=== PATIENT | female | born 1960 | race Caucasian/White ===

== ENCOUNTER 2019-06-08 16:40 | Outpatient (CLI) | payer MEDICARE, SELFPAY | END 2019-06-08 16:41 | disposition home or self-care (01) | LOC: CHSLAB 16:47 | PROVIDERS: PCP Internal Medicine; Visit Provider Specialist | DX: C44.519 Basal cell carcinoma of skin of other part of trunk (principal) | CPT/HCPCS: 88305 ==

== ENCOUNTER 2020-01-24 08:47 | Outpatient (CLI) | payer MEDICARE, SELFPAY ==
--- NOTE | ~2020-01-24 | MM_ITS ---
EXAMINATION: MM screening caleb BI w raúl HISTORY: Screening TECHNIQUE: Craniocaudal and mediolateral oblique 3-D tomosynthesis images were obtained and synthetic 2-D images were generated. CAD analysis was submitted and interpreted. COMPARISON: Comparison to multiple prior studies sequentially, with oldest reviewed study dated 11/17. BREAST PARENCHYMAL COMPOSITION: There are scattered areas of fibroglandular density. FINDINGS: There is no evidence of suspicious mass, calcification, or architectural distortion to sugg est malignancy in either breast. There has been no suspicious interval change. IMPRESSION: 1. No mammographic evidence of malignancy. 2. Recommend routine screening mammography in one year. BI-RADS Category 1: Negative Reviewed, dictated and finalized at location A.
== END 2020-01-24 08:48 | disposition home or self-care (01) ==
PROVIDERS: PCP Internal Medicine; Visit Provider Internal Medicine
DX: Z12.31 Encounter for screening mammogram for malignant neoplasm of breast (principal)
CPT/HCPCS: 77063; 77067

== ENCOUNTER 2020-02-11 07:07 | Outpatient (CLI) | payer MEDICARE, SELFPAY ==
[2020-02-11 07:19] LABS: Add Urine Microscopic? YES; Appearance Urine Clear (Clear); Bilirubin Urine Negative (Negative); Blood Urine Negative (Negative); Color Urine Yellow (Yellow); Glucose Urine UA Negative (Negative); Ketones Urine Negative (Negative); Leukocyte Esterase Ur 2+ (Negative); Nitrate Urine Negative (Negative); Protein Urine Negative (Negative); Specific Grav Ur 1.025 (1.010-1.020); Urobilinogen Urine 0.2 mg/dL (0.2-1.0)
[2020-02-11 07:20] LABS: Basophils Absolute Auto 0.08 K/mm3 (0.00-0.10); Basophils Percent Auto 1.4 % (0.0-1.0); Eosinophils Absolute Auto 0.18 K/mm3 (0.02-0.50); Eosinophils Percent Auto 3.1 % (1.0-6.0); Hematocrit 41.1 % (35.0-49.0); Hemoglobin 13.5 g/dL (12.0-15.0); Immature Granulocyte Absolute 0.02 K/mm3 (0.00-0.00); Immature Granulocyte Percent A 0.3 % (0.0-0.0); Lymphocytes Absolute Auto 2.42 K/mm3 (1.10-4.50); Lymphocytes Percent Auto 41.3 % (18.0-42.0); Mean Corpuscular HGB Conc 32.8 g/dL (32.0-36.0); Mean Corpuscular Hemoglobin 32.8 pg (27.0-31.0); Mean Platelet Volume 9.8 fl (9.2-11.8); Monocytes Absolute Auto 0.52 K/mm3 (0.10-0.90); Monocytes Percent Auto 8.9 % (2.0-11.0); Neutrophils Absolute Auto 2.6 K/mm3 (1.7-7.2); Platelet Count Result 236 K/mm3 (150-420); Red Blood Count 4.11 M/mm3 (4.20-5.40); Red Cell Distribution Width 11.9 % (11.6-14.4); White Blood Count 5.9 K/mm3 (4.8-10.8)
[2020-02-11 07:33] LABS: Bacteria Urine 1+ /hpf; RBC Urine 0-2 /hpf (0-2); Squamous Epithelial Cell Urine Few /hpf (Few)
[2020-02-11 08:20] LABS: Alanine Aminotransferase 24 U/L (14-59); Alkaline Phosphatase 126 U/L (46-116); Anion Gap 7 mmol/L (8-16); Aspartate Amino Transferase 15 U/L (15-37); Bilirubin,Total 0.3 mg/dL (0.00-1.00); Blood Urea Nitrogen 15 mg/dL (7-18); Carbon Dioxide 29 mmol/L (21-32); Chloride 104 mmol/L (98-108); Cholesterol 203 mg/dL (0-200); Creatine Kinase 82 U/L (26-192); Estimated Glomerular Filt Rate > 60; Glucose 92 mg/dL (70-99); HDL Direct 61 mg/dL (40-60); LDL Cholesterol Calculated 122 mg/dL (<130); Osmolality Calculated 290 mOsm/kg (285-295); Potassium 4.4 mmol/L (3.5-5.1); Sodium 140 mmol/L (136-145); Total Protein 7.5 g/dL (6.4-8.2); Triglycerides 98 mg/dL (0-150)
[2020-02-15 09:59] LABS: Vitamin D 25 Hydroxy 51 ng/mL (30-100)
== END 2020-02-11 07:08 | disposition home or self-care (01) ==
LOC: CHSLAB 07:09
PROVIDERS: PCP Internal Medicine; Visit Provider Internal Medicine
DX: E78.2 Mixed hyperlipidemia (principal); M81.0 Age-related osteoporosis without current pathological fracture; M54.2 Cervicalgia
CPT/HCPCS: 36415; 80053; 80061; 81001; 82306; 82550; 85025

== ENCOUNTER 2020-05-11 12:39 | Outpatient (CLI) | payer MEDICARE, SELFPAY ==
--- NOTE | ~2020-05-11 | XR_ITS ---
EXAMINATION: XR wrist RT 2V DATE: 05/11/2020 13:15 INDICATION: Right wrist pain and swelling. TECHNIQUE: 4 views of right wrist were obtained. COMPARISON: None. FINDINGS: Bone alignment is normal. No fracture. Joint spaces are well maintained. IMPRESSION: 1. Normal right wrist. Reviewed, dictated and finalized at location B. 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 Normal right wrist.
--- NOTE | ~2020-05-11 | XR_ITS ---
EXAMINATION: XR wrist LT 2V DATE: 05/11/2020 13:16 INDICATION: Left wrist pain and swelling. TECHNIQUE: 4 views of left wrist were obtained. COMPARISON: None. FINDINGS: Bone alignment is normal. No fracture. Joint spaces are well maintained. IMPRESSION: 1. Normal left wrist. Reviewed, dictated and finalized at location B. 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 Normal left wrist.
== END 2020-05-11 12:40 | disposition home or self-care (01) ==
LOC: CHSIMG 12:44
PROVIDERS: PCP Internal Medicine; Visit Provider Plastic Surgery
DX: M19.031 Primary osteoarthritis, right wrist (principal); M19.032 Primary osteoarthritis, left wrist
CPT/HCPCS: 73100

== ENCOUNTER 2020-09-15 08:59 | Outpatient (CLI) | payer MEDICARE, SELFPAY ==
[2020-09-15 09:12] LABS: Basophils Absolute Auto 0.04 K/mm3 (0.00-0.10); Basophils Percent Auto 0.5 % (0.0-1.0); Eosinophils Absolute Auto 0.12 K/mm3 (0.02-0.50); Eosinophils Percent Auto 1.4 % (1.0-6.0); Hematocrit 38.3 % (35.0-49.0); Hemoglobin 12.4 g/dL (12.0-15.0); Immature Granulocyte Absolute 0.03 K/mm3 (0.00-0.00); Immature Granulocyte Percent A 0.4 % (0.0-0.0); Lymphocytes Absolute Auto 1.78 K/mm3 (1.10-4.50); Lymphocytes Percent Auto 21.3 % (18.0-42.0); Mean Corpuscular HGB Conc 32.4 g/dL (32.0-36.0); Mean Corpuscular Hemoglobin 31.7 pg (27.0-31.0); Mean Platelet Volume 8.9 fl (9.2-11.8); Monocytes Absolute Auto 0.74 K/mm3 (0.10-0.90); Monocytes Percent Auto 8.9 % (2.0-11.0); Neutrophils Absolute Auto 5.6 K/mm3 (1.7-7.2); Neutrophils Percent Auto 67.5 % (50.0-70.0); Platelet Count Result 251 K/mm3 (150-420); Red Blood Count 3.91 M/mm3 (4.20-5.40); Red Cell Distribution Width 13.8 % (11.6-14.4); White Blood Count 8.3 K/mm3 (4.8-10.8)
[2020-09-15 10:16] LABS: Erythrocyte Sedimentation Rate 35 mm/hr (0-20)
[2020-09-15 10:17] LABS: Alanine Aminotransferase 23 U/L (14-59); Albumin Level 3.6 g/dL (3.4-5.0); Alkaline Phosphatase 142 U/L (46-116); Anion Gap 7 mmol/L (8-16); Aspartate Amino Transferase 14 U/L (15-37); Bilirubin,Total 0.3 mg/dL (0.00-1.00); Blood Urea Nitrogen 13 mg/dL (7-18); CRP 1.6 mg/dL (0.0-0.9); Carbon Dioxide 30 mmol/L (21-32); Chloride 102 mmol/L (98-108); Estimated Glomerular Filt Rate > 60; Glucose 85 mg/dL (70-99); Osmolality Calculated 287 mOsm/kg (285-295); Potassium 4.5 mmol/L (3.5-5.1); Sodium 139 mmol/L (136-145); Total Protein 7.6 g/dL (6.4-8.2)
== END 2020-09-15 09:00 | disposition home or self-care (01) ==
LOC: CHSLAB 09:01
PROVIDERS: PCP Internal Medicine; Visit Provider Internal Medicine
DX: M05.741 Rheumatoid arthritis with rheumatoid factor of right hand without organ or systems involvement (principal)
CPT/HCPCS: 36415; 80053; 85025; 85652; 86140

== ENCOUNTER 2021-01-26 12:28 | Outpatient (CLI) | payer MEDICARE, SELFPAY ==
--- NOTE | ~2021-01-26 | MM_ITS ---
EXAMINATION: MM screening caleb BI w raúl HISTORY: Screening mammogram TECHNIQUE: Craniocaudal and mediolateral oblique 3-D tomosynthesis images were obtained and synthetic 2-D images were generated. CAD analysis was submitted and interpreted. COMPARISON: 01/24/2020, 09/06/2018, 01/02/2015 bilateral digital screening mammogram examinations BREAST PARENCHYMAL COMPOSITION: There are scattered areas of fibroglandular density. FINDINGS: There is no evidence of suspicious mass, calcification, or architectural distortion to sugg est malignancy in either breast. There has been no suspicious interval change. IMPRESSION: 1. No mammographic evidence of malignancy. 2. Recommend routine screening mammography in one year. BI-RADS Category 1: Negative Reviewed, dictated and finalized at location A.
== END 2021-01-26 12:29 | disposition home or self-care (01) ==
LOC: CHSIMG 12:29
PROVIDERS: PCP Internal Medicine; Visit Provider Internal Medicine
DX: Z12.31 Encounter for screening mammogram for malignant neoplasm of breast (principal)
CPT/HCPCS: 77063; 77067

== ENCOUNTER 2021-01-30 15:35 | Outpatient (CLI) | payer MEDICARE, SELFPAY ==
[2021-01-30 16:36] LABS: SARS-CoV-2 RNA PCR Negative (Negative)
== END 2021-01-30 15:36 | disposition home or self-care (01) ==
LOC: CHSLAB 15:36
PROVIDERS: PCP Internal Medicine; Visit Provider Internal Medicine
DX: J06.9 Acute upper respiratory infection, unspecified (principal); Z20.822 Contact with and (suspected) exposure to COVID-19
CPT/HCPCS: C9803; U0003; U0005

== ENCOUNTER 2021-01-31 16:23 | Outpatient (CLI) | payer MEDICARE, SELFPAY ==
--- NOTE | ~2021-01-31 | XR_ITS ---
EXAMINATION: XR chest 2V DATE: 01/31/2021 16:55 INDICATION: 4 days of shortness of breath. COPD. TECHNIQUE: frontal and lateral views of the chest were obtained. COMPARISON: Chest radiograph dated 12/29/2017 FINDINGS: The lungs remain clear with no focal airspace opacities, pulmonary edema, pleural effusion or pneumot horax. The cardiomediastinal silhouette is normal. Mild thoracic spondylosis. Moderate arthrosis at t he right acromioclavicular joint. IMPRESSION: 1. No acute cardiopulmonary disease. Reviewed, dictated and finalized at location A.
--- NOTE | ~2021-01-31 | CT_ITS ---
EXAMINATION: CTA chest PE protocol DATE: 01/31/2021 18:00 INDICATION: Shortness of breath. TECHNIQUE: Computed tomography angiography (CTA) of the chest was performed with 100 mL Omnipaque-350 intravenous contrast timed to evaluate the pulmonary arteries. Coronal maximum intensity projection 3D-reconstructions were created by the technologist. Automated exposure control and iterative reconst ruction technique were employed. The dose-length product was 291.10 mGy-cm. COMPARISON: Chest CT 08/31/2018 FINDINGS: There is mild scarring at the lung apices. There is moderate emphysema. There is mild depen dent atelectasis bilaterally. No pleural effusion. The heart size is normal. No pericardial effusion. There is no pulmonary embolus. There is a small sliding hiatal hernia. There is mild thoracic spondy losis. IMPRESSION: 1. No pulmonary embolus. 2. Moderate emphysema. Reviewed, dictated and finalized at location A.
[2021-01-31 16:45] LABS: Basophils Absolute Auto 0.05 K/mm3 (0.00-0.10); Basophils Percent Auto 0.6 % (0.0-1.0); Eosinophils Absolute Auto 0.14 K/mm3 (0.02-0.50); Eosinophils Percent Auto 1.8 % (1.0-6.0); Hematocrit 36.3 % (35.0-49.0); Hemoglobin 11.9 g/dL (12.0-15.0); Immature Granulocyte Absolute 0.05 K/mm3 (0.00-0.00); Immature Granulocyte Percent A 0.6 % (0.0-0.0); Lymphocytes Absolute Auto 1.23 K/mm3 (1.10-4.50); Lymphocytes Percent Auto 15.4 % (18.0-42.0); Mean Corpuscular HGB Conc 32.8 g/dL (32.0-36.0); Mean Corpuscular Hemoglobin 33.5 pg (27.0-31.0); Mean Corpuscular Volume 102.3 fL (78.0-102.0); Mean Platelet Volume 9.1 fl (9.2-11.8); Monocytes Absolute Auto 0.57 K/mm3 (0.10-0.90); Monocytes Percent Auto 7.1 % (2.0-11.0); Neutrophils Percent Auto 74.5 % (50.0-70.0); Platelet Count Result 269 K/mm3 (150-420); Red Blood Count 3.55 M/mm3 (4.20-5.40); Red Cell Distribution Width 14.7 % (11.6-14.4)
--- NOTE | 2021-01-31 17:00 | ECG_ITS ---
Measurements Intervals [place] Rate: 69 P: 67 AR: 138 QRS: 75 QRSD: 96 T: 73 QT: 371 QTc: 399 Interpretive Statements SINUS RHYTHM ST-T WAVE ABNORMALITY IN ANTERIOR LEADS- CONSIDER ISCHEMIA ABNORMAL ECG Electronically Signed On 02-01-2021 8:36:32 CDT by Jj Pepper D.O.
[2021-01-31 17:01] LABS: D Dimer 0.66 mg/L (0.19-0.50)
[2021-01-31 17:06] LABS: Alanine Aminotransferase 30 U/L (14-59); Albumin Level 3.3 g/dL (3.4-5.0); Alkaline Phosphatase 130 U/L (46-116); Anion Gap 8 mmol/L (8-16); Aspartate Amino Transferase 18 U/L (15-37); Bilirubin,Total 0.2 mg/dL (0.00-1.00); Blood Urea Nitrogen 13 mg/dL (7-18); Calcium 9.4 mg/dL (8.5-10.1); Carbon Dioxide 30 mmol/L (21-32); Chloride 103 mmol/L (98-108); Estimated Glomerular Filt Rate > 60; Glucose 105 mg/dL (70-99); NT Pro B Type Natriuretic Pept 71 pg/mL (0-125); Osmolality Calculated 292 mOsm/kg (285-295); Sodium 141 mmol/L (136-145); Total Protein 7.7 g/dL (6.4-8.2)
[2021-02-01 09:48] LABS: Vitamin B12 1036 pg/mL (193-986)
[2021-02-06 11:47] LABS: Red Blood Cell Folate >1000 ng/mL RBC (>280)
== END 2021-01-31 16:24 | disposition home or self-care (01) ==
PROVIDERS: PCP Internal Medicine; Visit Provider Internal Medicine
DX: R06.02 Shortness of breath (principal); R79.1 Abnormal coagulation profile; R06.00 Dyspnea, unspecified; J44.9 Chronic obstructive pulmonary disease, unspecified; D64.9 Anemia, unspecified
CPT/HCPCS: 36415; 71046; 71275; 80053; 82607; 82747; 83880; 85025; 85380; 93005; Q9967

== ENCOUNTER 2021-02-07 12:19 | Outpatient (CLI) | payer MEDICARE, SELFPAY | END 2021-02-07 12:20 | disposition home or self-care (01) | LOC: CHSCARD 12:20 | PROVIDERS: PCP Internal Medicine; Visit Provider Internal Medicine | DX: R06.00 Dyspnea, unspecified (principal); J44.9 Chronic obstructive pulmonary disease, unspecified | CPT/HCPCS: 94060; 94726; 94729 ==

== ENCOUNTER 2021-02-16 13:43 | Outpatient (CLI) | payer MEDICARE, SELFPAY ==
--- NOTE | ~2021-02-16 | US_ITS ---
EXAMINATION: US carotid duplex BI DATE: 02/16/2021 14:05 INDICATION: Carotid stenosis. TECHNIQUE: Grayscale, color Doppler, and pulsed Doppler images of the cervical carotid arteries were obtained. The degree of vessel stenosis is placed in one of the following categories: normal, <50%, 5 0-69%, >=70% but less than near-occlusion, near-occlusion, or total occlusion. Note that percent sten osis relative to normal distal artery lumen diameter is indirectly measured from velocity measurement s as described by Richard, et al. Radiology 2003; [id number]:340-346. COMPARISON: Chest CT 08/31/2018 FINDINGS: RIGHT: The right common carotid artery (CCA) peak systolic velocity (PSV) is 74 cm/s. The right internal car otid artery (ICA) PSV is 53 cm/s. The right ICA end-diastolic velocity (EDV) is 17 cm/s. The right IC A/CCA PSV ratio is 0.7. Grayscale and color Doppler images yield an estimate of <50% diameter reducti on from plaque in the ICA. There is no visible flow in the right vertebral artery. LEFT: The left CCA PSV is 84 cm/s. The left ICA PSV is 57 cm/s. The left ICA EDV is 25 cm/s. The left ICA/C CA PSV ratio is 0.7. Grayscale and color Doppler images yield an estimate of <50% diameter reduction from plaque in the ICA. There is antegrade flow in the left vertebral artery. IMPRESSION: 1. <50% stenosis in the right internal carotid artery. 2. <50% stenosis in the left internal carotid artery. 3. No visible flow in right vertebral artery, likely thrombosed. Reviewed, dictated and finalized at location A.
--- NOTE | ~2021-02-16 | DEXA_ITS ---
Bone Density Report Name: Hailey Nicole Age: 60 Sex: Female Ethnicity: White Date of : 1960 Indication: postmenopausal; screening for osteoporosis; asthma or emphysema; hysterectomy; rheumatoid arthritis; Referring Provider: Josefina Nguyen Study: Bone densitometry was performed. Exam Date: February 16, 2021 Accession number: [id number] Bone Density: Region BMD T-score Z-score Classification AP Spine(L1-L4) 0.812 -2.1 -0.8 Osteopenia Femoral Neck (Left) 0.658 -1.7 -0.5 Osteopenia Total Hip (Left) 0.770 -1.4 -0.5 Osteopenia Femoral Neck (Right) 0.675 -1.6 -0.3 Osteopenia Total Hip (Right) 0.767 -1.4 -0.5 Osteopenia Femoral Neck Mean 0.667 -1.6 -0.4 Osteopenia Total Hip Mean 0.769 -1.4 -0.5 Osteopenia World Health Organization criteria for BMD impression classify patients as: Normal (T-score at or above -1.0), Osteopenia (T-score between -1.0 and -2.5), or Osteoporosis (T-score at or below -2.5). 10-year Fracture Risk(1): Major Osteoporotic Fracture 11% Hip Fracture 1.2% Reported Risk Factors: [place] (), Neck BMD=0.658, BMI=26.1, rheumatoid arthritis (1) FRAX(R) Version 3.08. Fracture probability calculated for an untreated patient. Fracture probability may be lower if the patient has received treatment. Clinical Information Provided by Patient: Has rheumatoid arthritis Has used the following medications: Vitamin D, Calcium Has the following medical conditions: Asthma or Emphysema, Hysterectomy Patient maximum height was 64 Menopause Age: 31 No regular weight bearing exercise Drinks caffeinated beverages Onset of menses at age 15 Number of children 1 Impression: The patient has low bone mass, based on the Total Spine T-score. Discussion: BONE DENSITY IS LOW AT ONE OR MORE SKELETAL SITES. This patient's lowest T-score is low at one or more skeletal sites. It meets the World Health Organization's (WHO) criteria for ?low bone mass? (T-score between -1.0 and -2.5). The patient's 10-year risk of fracture as calculated by FRAX is less than the threshold where pharmacological therapy is recommended by the National Osteoporosis Foundation (NOF). However, all treatment decisions require clinical judgment and consideration of individual patient factors, including patient preferences, comorbidities, previous drug use, risk factors not captured in the FRAX model (e.g., frailty, falls, vitamin D deficiency, increased bone turnover, interval significant decline in bone density) and possible under or overestimation of fracture risk by FRAX. The patient should follow a healthful lifestyle (good nutrition with adequate calcium and vitamin D, and appropriate weight-bearing exercise). Follow-Up: Consider repeating this study in 2 to 3 years to reassess this pa
== END 2021-02-16 13:44 | disposition home or self-care (01) ==
LOC: CHSIMG 13:43
PROVIDERS: PCP Internal Medicine; Visit Provider Internal Medicine
DX: M81.0 Age-related osteoporosis without current pathological fracture (principal); I65.23 Occlusion and stenosis of bilateral carotid arteries
CPT/HCPCS: 77080; 93880

== ENCOUNTER 2021-10-09 15:18 | Outpatient (CLI) | payer MEDICARE, SELFPAY ==
--- NOTE | ~2021-10-09 | XR_ITS ---
EXAM: XR shoulder LT min 2V DATE: 10/09/2021 15:37 HISTORY: L SHOULDER PAIN X3 DAYS NKI . COMPARISON: None available. FINDINGS: Normal mineralization. No fracture or dislocation. No lytic or blastic lesion. Joint space s are maintained. No erosion or periosteal change. Soft tissues within normal limits. IMPRESSION: No acute osseous finding in the left shoulder. Reviewed, dictated and finalized at location K.
== END 2021-10-09 15:19 | disposition home or self-care (01) ==
LOC: CHSIMG 15:21
PROVIDERS: PCP Internal Medicine; Visit Provider Internal Medicine
DX: M25.512 Pain in left shoulder (principal)
CPT/HCPCS: 73030

== ENCOUNTER 2021-12-04 14:30 | Outpatient (CLI) | payer MEDICARE, SELFPAY ==
[2021-12-04 14:45] LABS: Basophils Absolute Auto 0.04 K/mm3 (0.00-0.10); Basophils Percent Auto 0.5 % (0.0-1.0); Eosinophils Percent Auto 1.2 % (1.0-6.0); Hemoglobin 11.8 g/dL (12.0-15.0); Immature Granulocyte Absolute 0.03 K/mm3 (0.00-0.00); Immature Granulocyte Percent A 0.4 % (0.0-0.0); Lymphocytes Absolute Auto 1.71 K/mm3 (1.10-4.50); Lymphocytes Percent Auto 21.1 % (18.0-42.0); Mean Corpuscular HGB Conc 32.8 g/dL (32.0-36.0); Mean Corpuscular Hemoglobin 34.5 pg (27.0-31.0); Mean Corpuscular Volume 105.3 fL (78.0-102.0); Mean Platelet Volume 10.3 fl (9.2-11.8); Monocytes Absolute Auto 0.61 K/mm3 (0.10-0.90); Monocytes Percent Auto 7.5 % (2.0-11.0); Neutrophils Absolute Auto 5.6 K/mm3 (1.7-7.2); Neutrophils Percent Auto 69.3 % (50.0-70.0); Platelet Count Result 254 K/mm3 (150-420); Red Blood Count 3.42 M/mm3 (4.20-5.40); Red Cell Distribution Width 15.5 % (11.6-14.4); White Blood Count 8.1 K/mm3 (4.8-10.8)
[2021-12-04 15:05] LABS: Alanine Aminotransferase 39 U/L (14-59); Albumin Level 4.2 g/dL (3.4-5.0); Alkaline Phosphatase 118 U/L (46-116); Anion Gap 8 mmol/L (8-16); Aspartate Amino Transferase 24 U/L (15-37); Bilirubin,Total 0.3 mg/dL (0.00-1.00); Blood Urea Nitrogen 15 mg/dL (7-18); Calcium 9.1 mg/dL (8.5-10.1); Carbon Dioxide 26 mmol/L (21-32); Chloride 103 mmol/L (98-108); Estimated Glomerular Filt Rate > 60; Glucose 92 mg/dL (70-99); Osmolality Calculated 284 mOsm/kg (285-295); Potassium 4.2 mmol/L (3.5-5.1); Sodium 137 mmol/L (136-145); Total Protein 7.5 g/dL (6.4-8.2)
[2021-12-04 15:56] LABS: Erythrocyte Sedimentation Rate 23 mm/hr (0-20)
== END 2021-12-04 14:31 | disposition home or self-care (01) ==
LOC: CHSLAB 14:36
PROVIDERS: PCP Internal Medicine
DX: Z79.899 Other long term (current) drug therapy (principal)
CPT/HCPCS: 36415; 80053; 85025; 85652

== ENCOUNTER 2022-02-01 07:46 | Outpatient (CLI) | payer MEDICARE, SELFPAY ==
--- NOTE | ~2022-02-01 | MM_ITS ---
EXAMINATION: MM screening [facility] BI w raúl HISTORY: Screening TECHNIQUE: Craniocaudal and mediolateral oblique 3-D tomosynthesis images were obtained and synthetic 2-D images were generated. CAD analysis was submitted and interpreted. COMPARISON: Comparison to multiple prior studies sequentially, with oldest reviewed study dated 06/2013. BREAST PARENCHYMAL COMPOSITION: There are scattered areas of fibroglandular density. FINDINGS: There is no evidence of suspicious mass, calcification, or architectural distortion to sugg est malignancy in either breast. There has been no suspicious interval change. IMPRESSION: 1. No mammographic evidence of malignancy. 2. Recommend routine screening mammography in one year. BI-RADS Category 1: Negative Reviewed, dictated and finalized at location A.
== END 2022-02-01 07:47 | disposition home or self-care (01) ==
LOC: CHSIMG 07:49
PROVIDERS: PCP Internal Medicine; Visit Provider Internal Medicine
DX: Z12.31 Encounter for screening mammogram for malignant neoplasm of breast (principal)
CPT/HCPCS: 77063; 77067

== ENCOUNTER 2022-02-04 08:52 | Outpatient (CLI) | payer MEDICARE, SELFPAY ==
[2022-02-04 09:09] LABS: Basophils Absolute Auto 0.07 K/mm3 (0.00-0.10); Basophils Percent Auto 0.8 % (0.0-1.0); Eosinophils Absolute Auto 0.19 K/mm3 (0.02-0.50); Eosinophils Percent Auto 2.2 % (1.0-6.0); Hematocrit 40.8 % (35.0-49.0); Hemoglobin 13.2 g/dL (12.0-15.0); Immature Granulocyte Absolute 0.03 K/mm3 (0.00-0.00); Immature Granulocyte Percent A 0.3 % (0.0-0.0); Lymphocytes Absolute Auto 2.64 K/mm3 (1.10-4.50); Lymphocytes Percent Auto 30.8 % (18.0-42.0); Mean Corpuscular HGB Conc 32.4 g/dL (32.0-36.0); Mean Corpuscular Hemoglobin 33.6 pg (27.0-31.0); Mean Corpuscular Volume 103.8 fL (78.0-102.0); Mean Platelet Volume 10.4 fl (9.2-11.8); Monocytes Absolute Auto 0.62 K/mm3 (0.10-0.90); Monocytes Percent Auto 7.2 % (2.0-11.0); Neutrophils Percent Auto 58.7 % (50.0-70.0); Platelet Count Result 233 K/mm3 (150-420); Red Blood Count 3.93 M/mm3 (4.20-5.40); Red Cell Distribution Width 13.7 % (11.6-14.4); White Blood Count 8.6 K/mm3 (4.8-10.8)
[2022-02-04 09:15] LABS: Appearance Urine Slightly Cloudy (Clear); Bilirubin Urine Negative (Negative); Glucose Urine UA Negative (Negative); Ketones Urine Negative (Negative); Leukocyte Esterase Ur 3+ LEU/UL (Negative); Nitrate Urine Positive (Negative); Protein Urine Negative (Negative); Urobilinogen Urine 0.2 mg/dL (0.2-1.0)
[2022-02-04 09:21] LABS: Add Urine Microscopic? YES; Bacteria Urine 2+ /hpf; Blood Urine Trace-Intact (Negative); Color Urine Light Yellow (Yellow); RBC Urine 0-2 /hpf (0-2); Squamous Epithelial Cell Urine Few /hpf (Few); WBC Urine 21-30 /hpf (0-3)
[2022-02-04 10:23] LABS: Alanine Aminotransferase 23 U/L (14-59); Albumin Level 4.1 g/dL (3.4-5.0); Alkaline Phosphatase 122 U/L (46-116); Anion Gap 7 mmol/L (8-16); Aspartate Amino Transferase 17 U/L (15-37); Bilirubin,Total 0.3 mg/dL (0.00-1.00); Blood Urea Nitrogen 15 mg/dL (7-18); Carbon Dioxide 30 mmol/L (21-32); Chloride 107 mmol/L (98-108); Cholesterol 180 mg/dL (0-200); Creatine Kinase 83 U/L (26-192); Estimated Glomerular Filt Rate > 60; Glucose 86 mg/dL (70-99); HDL Direct 56 mg/dL (40-60); LDL Cholesterol Calculated 110 mg/dL (<130); Osmolality Calculated 297 mOsm/kg (285-295); Sodium 144 mmol/L (136-145); Total Protein 7.3 g/dL (6.4-8.2); Triglycerides 69 mg/dL (0-150); Vitamin B12 919 pg/mL (193-986)
== END 2022-02-04 08:53 | disposition home or self-care (01) ==
LOC: CHSLAB 08:55
PROVIDERS: PCP Internal Medicine; Visit Provider Internal Medicine
DX: E78.2 Mixed hyperlipidemia (principal); N39.0 Urinary tract infection, site not specified; E53.8 Deficiency of other specified B group vitamins
CPT/HCPCS: 36415; 80053; 80061; 81001; 82550; 82607; 85025; 87077; 87086; 87088; 87186

== ENCOUNTER 2022-02-15 09:43 | Outpatient (CLI) | payer MEDICARE, SELFPAY ==
--- NOTE | ~2022-02-15 | CT_ITS ---
EXAMINATION: CT lung screening DATE: 02/15/2022 10:13 INDICATION: Personal history of tobacco dependence. Shortness of breath. Cough. TECHNIQUE: Computed tomography (CT) of the chest was performed without intravenous contrast. The dose -length product was 70.14 mGy-cm. Automated exposure control and iterative reconstruction technique w ere employed. COMPARISON: CT dated 01/31/2021 FINDINGS: No thoracic lymphadenopathy. Heart size is normal. There is atherosclerosis of the aorta. N o significant pleural or pericardial effusion. The upper abdomen is unremarkable. There is emphysema. There are reticulonodular densities in the right middle lobe, most likely infectious/inflammatory. L argest groundglass nodules in the right upper lobe measuring 3 mm. No acute osseous abnormality. IMPRESSION: 1. Lung-RADS category 2: Benign appearance or behavior. Continue annual screening with noncontrast lo w-dose chest CT in 12 months. Reviewed, dictated and finalized at location B. IMPRESSION: 1. Lung-RADS category 2: Benign appearance or behavior. Continue annual screeni ng with noncontrast low-dose chest CT in 12 months.
== END 2022-02-15 09:44 | disposition home or self-care (01) ==
LOC: CHSIMG 09:44
PROVIDERS: PCP Internal Medicine; Visit Provider Internal Medicine
DX: Z12.2 Encounter for screening for malignant neoplasm of respiratory organs (principal); Z87.891 Personal history of nicotine dependence
CPT/HCPCS: 71271

== ENCOUNTER 2022-07-23 08:05 | Outpatient (CLI) | payer MEDICARE, SELFPAY ==
[2022-07-23 08:48] LABS: Appearance Urine Clear (Clear); Basophils Absolute Auto 0.04 K/mm3 (0.00-0.10); Basophils Percent Auto 0.5 % (0.0-1.0); Bilirubin Urine Negative (Negative); Blood Urine Negative (Negative); Color Urine Light Yellow (Yellow); Eosinophils Absolute Auto 0.09 K/mm3 (0.02-0.50); Glucose Urine UA Negative (Negative); Hematocrit 41.2 % (35.0-49.0); Hemoglobin 13.4 g/dL (12.0-15.0); Immature Granulocyte Absolute 0.03 K/mm3 (0.00-0.00); Immature Granulocyte Percent A 0.3 % (0.0-0.0); Ketones Urine Negative (Negative); Leukocyte Esterase Ur Negative (Negative); Lymphocytes Absolute Auto 2.03 K/mm3 (1.10-4.50); Lymphocytes Percent Auto 23.5 % (18.0-42.0); Mean Corpuscular HGB Conc 32.5 g/dL (32.0-36.0); Mean Corpuscular Hemoglobin 33.9 pg (27.0-31.0); Mean Corpuscular Volume 104.3 fL (78.0-102.0); Mean Platelet Volume 10.2 fl (9.2-11.8); Monocytes Percent Auto 8.1 % (2.0-11.0); Neutrophils Absolute Auto 5.7 K/mm3 (1.7-7.2); Neutrophils Percent Auto 66.6 % (50.0-70.0); Nitrate Urine Negative (Negative); Platelet Count Result 277 K/mm3 (150-420); Protein Urine Negative (Negative); Red Blood Count 3.95 M/mm3 (4.20-5.40); Red Cell Distribution Width 14.1 % (11.6-14.4); Urobilinogen Urine 0.2 mg/dL (0.2-1.0); White Blood Count 8.6 K/mm3 (4.8-10.8)
[2022-07-23 08:50] LABS: Add Urine Microscopic? NO
[2022-07-23 09:48] LABS: Erythrocyte Sedimentation Rate 16 mm/hr (0-20)
[2022-07-23 09:52] LABS: Alanine Aminotransferase 39 U/L (14-59); Albumin Level 3.6 g/dL (3.4-5.0); Alkaline Phosphatase 147 U/L (46-116); Anion Gap 5 mmol/L (8-16); Aspartate Amino Transferase 26 U/L (15-37); Bilirubin,Total 0.3 mg/dL (0.00-1.00); Blood Urea Nitrogen 8 mg/dL (7-18); Calcium 9.1 mg/dL (8.5-10.1); Carbon Dioxide 33 mmol/L (21-32); Chloride 107 mmol/L (98-108); Cholesterol 177 mg/dL (0-200); Creatine Kinase 74 U/L (26-192); Estimated Glomerular Filt Rate > 60; Glucose 88 mg/dL (70-99); HDL Direct 83 mg/dL (40-60); LDL Cholesterol Calculated 86 mg/dL (<130); Osmolality Calculated 297 mOsm/kg (285-295); Potassium 3.9 mmol/L (3.5-5.1); Sodium 145 mmol/L (136-145); Total Protein 7.1 g/dL (6.4-8.2); Triglycerides 39 mg/dL (0-150); Vitamin B12 960 pg/mL (193-986)
[2022-07-23 09:56] LABS: CRP < 0.5 mg/dL (0.0-0.9)
== END 2022-07-23 08:06 | disposition home or self-care (01) ==
LOC: CHSLAB 08:06
PROVIDERS: PCP Internal Medicine; Visit Provider Internal Medicine
DX: I10 Essential (primary) hypertension (principal); E78.2 Mixed hyperlipidemia; M05.9 Rheumatoid arthritis with rheumatoid factor, unspecified; E53.8 Deficiency of other specified B group vitamins
CPT/HCPCS: 36415; 80053; 80061; 81003; 82550; 82607; 85025; 85652; 86140

== ENCOUNTER 2022-09-13 09:28 | Outpatient (CLI) | payer MEDICARE, SELFPAY ==
[2022-09-13 09:47] LABS: Basophils Absolute Auto 0.09 K/mm3 (0.00-0.10); Basophils Percent Auto 1.6 % (0.0-1.0); Eosinophils Percent Auto 1.8 % (1.0-6.0); Hematocrit 41.8 % (35.0-49.0); Hemoglobin 13.5 g/dL (12.0-15.0); Immature Granulocyte Absolute 0.02 K/mm3 (0.00-0.00); Immature Granulocyte Percent A 0.4 % (0.0-0.0); Lymphocytes Absolute Auto 1.71 K/mm3 (1.10-4.50); Lymphocytes Percent Auto 30.1 % (18.0-42.0); Mean Corpuscular HGB Conc 32.3 g/dL (32.0-36.0); Mean Corpuscular Hemoglobin 34.4 pg (27.0-31.0); Mean Corpuscular Volume 106.4 fL (78.0-102.0); Mean Platelet Volume 10.2 fl (9.2-11.8); Monocytes Absolute Auto 0.63 K/mm3 (0.10-0.90); Monocytes Percent Auto 11.1 % (2.0-11.0); Neutrophils Absolute Auto 3.1 K/mm3 (1.7-7.2); Platelet Count Result 232 K/mm3 (150-420); Red Blood Count 3.93 M/mm3 (4.20-5.40); Red Cell Distribution Width 14.8 % (11.6-14.4); White Blood Count 5.7 K/mm3 (4.8-10.8)
[2022-09-13 10:18] LABS: Alanine Aminotransferase 39 U/L (14-59); Albumin Level 3.6 g/dL (3.4-5.0); Alkaline Phosphatase 118 U/L (46-116); Anion Gap 6 mmol/L (8-16); Aspartate Amino Transferase 26 U/L (15-37); Bilirubin,Total 0.4 mg/dL (0.00-1.00); Blood Urea Nitrogen 7 mg/dL (7-18); Calcium 9.2 mg/dL (8.5-10.1); Carbon Dioxide 31 mmol/L (21-32); Chloride 106 mmol/L (98-108); Estimated Glomerular Filt Rate > 60; Glucose 81 mg/dL (70-99); Osmolality Calculated 293 mOsm/kg (285-295); Sodium 143 mmol/L (136-145); Total Protein 7.1 g/dL (6.4-8.2)
[2022-09-13 10:19] LABS: CRP < 0.5 mg/dL (0.0-0.9)
[2022-09-13 10:49] LABS: Erythrocyte Sedimentation Rate 20 mm/hr (0-20)
== END 2022-09-13 09:29 | disposition home or self-care (01) ==
LOC: CHSLAB 09:33
PROVIDERS: PCP Internal Medicine; Visit Provider Internal Medicine Rheumatology
DX: M35.3 Polymyalgia rheumatica (principal); Z79.899 Other long term (current) drug therapy
CPT/HCPCS: 36415; 80053; 85025; 85652; 86140

== ENCOUNTER 2022-10-08 14:36 | Outpatient (CLI) | payer MEDICARE, SELFPAY ==
[2022-10-08 14:51] LABS: Basophils Absolute Auto 0.06 K/mm3 (0.00-0.10); Basophils Percent Auto 0.7 % (0.0-1.0); Eosinophils Absolute Auto 0.08 K/mm3 (0.02-0.50); Hematocrit 39.4 % (35.0-49.0); Hemoglobin 12.8 g/dL (12.0-15.0); Immature Granulocyte Absolute 0.03 K/mm3 (0.00-0.00); Immature Granulocyte Percent A 0.4 % (0.0-0.0); Lymphocytes Absolute Auto 1.33 K/mm3 (1.10-4.50); Lymphocytes Percent Auto 16.3 % (18.0-42.0); Mean Corpuscular HGB Conc 32.5 g/dL (32.0-36.0); Mean Corpuscular Hemoglobin 34.3 pg (27.0-31.0); Mean Corpuscular Volume 105.6 fL (78.0-102.0); Mean Platelet Volume 10.1 fl (9.2-11.8); Monocytes Absolute Auto 0.71 K/mm3 (0.10-0.90); Monocytes Percent Auto 8.7 % (2.0-11.0); Neutrophils Percent Auto 72.9 % (50.0-70.0); Platelet Count Result 213 K/mm3 (150-420); Red Blood Count 3.73 M/mm3 (4.20-5.40); White Blood Count 8.2 K/mm3 (4.8-10.8)
[2022-10-08 15:15] LABS: Alanine Aminotransferase 38 U/L (14-59); Albumin Level 3.6 g/dL (3.4-5.0); Alkaline Phosphatase 128 U/L (46-116); Anion Gap 7 mmol/L (8-16); Aspartate Amino Transferase 32 U/L (15-37); Bilirubin,Total 0.4 mg/dL (0.00-1.00); Blood Urea Nitrogen 10 mg/dL (7-18); Calcium 8.7 mg/dL (8.5-10.1); Carbon Dioxide 29 mmol/L (21-32); Chloride 103 mmol/L (98-108); Estimated Glomerular Filt Rate > 60; Glucose 109 mg/dL (70-99); Osmolality Calculated 288 mOsm/kg (285-295); Potassium 3.6 mmol/L (3.5-5.1); Sodium 139 mmol/L (136-145); Total Protein 6.9 g/dL (6.4-8.2)
[2022-10-08 15:16] LABS: CRP < 0.5 mg/dL (0.0-0.9)
[2022-10-08 15:53] LABS: Erythrocyte Sedimentation Rate 20 mm/hr (0-20)
== END 2022-10-08 14:37 | disposition home or self-care (01) ==
LOC: CHSLAB 14:39
PROVIDERS: PCP Internal Medicine; Visit Provider Internal Medicine Rheumatology
DX: Z79.899 Other long term (current) drug therapy (principal)
CPT/HCPCS: 36415; 80053; 85025; 85652; 86140

== ENCOUNTER 2022-11-01 10:42 | Outpatient (CLI) | payer MEDICARE, SELFPAY ==
[2022-11-05 14:09] LABS: NIL 0.02 IU/mL; Quantiferon TB Plus, 1T NEGATIVE (NEGATIVE)
[2022-11-07 07:04] LABS: Hepatitis B Core Ab Total Nonreactive (Nonreactive)
[2022-11-07 07:05] LABS: Hepatitis B Surface Antigen Nonreactive (Nonreactive); Hepatitis C Virus Antibody Nonreactive
== END 2022-11-01 10:43 | disposition home or self-care (01) ==
LOC: CHSLAB 10:46
PROVIDERS: PCP Internal Medicine; Visit Provider Internal Medicine Rheumatology
DX: M35.3 Polymyalgia rheumatica (principal)
CPT/HCPCS: 36415; 86480; 86704; 86803; 87340

== ENCOUNTER 2022-11-28 09:34 | Outpatient (CLI) | payer MEDICARE, SELFPAY ==
[2022-11-28 09:52] LABS: Basophils Absolute Auto 0.05 K/mm3 (0.00-0.10); Eosinophils Absolute Auto 0.12 K/mm3 (0.02-0.50); Eosinophils Percent Auto 2.4 % (1.0-6.0); Hematocrit 39.8 % (35.0-49.0); Hemoglobin 13.2 g/dL (12.0-15.0); Immature Granulocyte Absolute 0.01 K/mm3 (0.00-0.00); Immature Granulocyte Percent A 0.2 % (0.0-0.0); Lymphocytes Absolute Auto 1.42 K/mm3 (1.10-4.50); Lymphocytes Percent Auto 28.3 % (18.0-42.0); Mean Corpuscular HGB Conc 33.2 g/dL (32.0-36.0); Mean Corpuscular Hemoglobin 35.7 pg (27.0-31.0); Mean Corpuscular Volume 107.6 fL (78.0-102.0); Mean Platelet Volume 10.1 fl (9.2-11.8); Monocytes Absolute Auto 0.41 K/mm3 (0.10-0.90); Monocytes Percent Auto 8.2 % (2.0-11.0); Neutrophils Percent Auto 59.9 % (50.0-70.0); Platelet Count Result 207 K/mm3 (150-420); Red Cell Distribution Width 14.2 % (11.6-14.4)
[2022-11-28 10:47] LABS: Alanine Aminotransferase 25 U/L (14-59); Albumin Level 3.4 g/dL (3.4-5.0); Alkaline Phosphatase 135 U/L (46-116); Anion Gap 8 mmol/L (8-16); Aspartate Amino Transferase 18 U/L (15-37); Bilirubin,Total 0.4 mg/dL (0.00-1.00); Blood Urea Nitrogen 8 mg/dL (7-18); CRP 0.5 mg/dL (0.0-0.9); Calcium 8.8 mg/dL (8.5-10.1); Carbon Dioxide 30 mmol/L (21-32); Chloride 106 mmol/L (98-108); Estimated Glomerular Filt Rate > 60; Glucose 102 mg/dL (70-99); Osmolality Calculated 296 mOsm/kg (285-295); Sodium 144 mmol/L (136-145); Total Protein 6.8 g/dL (6.4-8.2)
[2022-11-28 10:54] LABS: Erythrocyte Sedimentation Rate 30 mm/hr (0-20)
== END 2022-11-28 09:35 | disposition home or self-care (01) ==
LOC: CHSLAB 09:36
PROVIDERS: PCP Internal Medicine; Visit Provider Internal Medicine Rheumatology
DX: Z79.899 Other long term (current) drug therapy (principal)
CPT/HCPCS: 36415; 80053; 85025; 85652; 86140

== ENCOUNTER 2022-12-31 12:32 | Outpatient (CLI) | payer MEDICARE, SELFPAY ==
--- NOTE | ~2022-12-31 | XR_ITS ---
AP view of the pelvis and AP and lateral views of the bilateral hips Clinical history: Pain Findings: No acute fracture or dislocation is seen. Osseous alignment is anatomic. Bilateral hip and SI joint spaces are preserved. Soft tissues are unremarkable. Impression: No significant abnormality is seen. Reviewed, dictated and finalized at location . Impression: No significant abnormality is seen.
== END 2022-12-31 12:33 | disposition home or self-care (01) ==
LOC: CHSIMG 12:35
PROVIDERS: PCP Internal Medicine; Visit Provider Internal Medicine Rheumatology
DX: M70.61 Trochanteric bursitis, right hip (principal); M70.62 Trochanteric bursitis, left hip
CPT/HCPCS: 73521

== ENCOUNTER 2023-01-29 08:44 | Outpatient (CLI) | payer MEDICARE, SELFPAY ==
[2023-01-29 09:03] LABS: Appearance Urine Clear (Clear); Bilirubin Urine Negative (Negative); Blood Urine 3+ (Negative); Glucose Urine UA Negative (Negative); Ketones Urine Negative (Negative); Leukocyte Esterase Ur 3+ (Negative); Nitrate Urine Negative (Negative); Protein Urine 1+ (Negative); Specific Grav Ur 1.015 (1.010-1.020); Urobilinogen Urine 0.2 mg/dL (0.2-1.0)
[2023-01-29 09:04] LABS: Basophils Absolute Auto 0.07 K/mm3 (0.00-0.10); Basophils Percent Auto 0.6 % (0.0-1.0); Eosinophils Absolute Auto 0.11 K/mm3 (0.02-0.50); Eosinophils Percent Auto 0.9 % (1.0-6.0); Hematocrit 39.9 % (35.0-49.0); Hemoglobin 13.3 g/dL (12.0-15.0); Immature Granulocyte Absolute 0.06 K/mm3 (0.00-0.00); Immature Granulocyte Percent A 0.5 % (0.0-0.0); Lymphocytes Absolute Auto 1.69 K/mm3 (1.10-4.50); Lymphocytes Percent Auto 13.6 % (18.0-42.0); Mean Corpuscular HGB Conc 33.3 g/dL (32.0-36.0); Mean Corpuscular Hemoglobin 35.2 pg (27.0-31.0); Mean Corpuscular Volume 105.6 fL (78.0-102.0); Mean Platelet Volume 10.4 fl (9.2-11.8); Monocytes Absolute Auto 0.79 K/mm3 (0.10-0.90); Monocytes Percent Auto 6.3 % (2.0-11.0); Neutrophils Absolute Auto 9.8 K/mm3 (1.7-7.2); Neutrophils Percent Auto 78.1 % (50.0-70.0); Platelet Count Result 215 K/mm3 (150-420); Red Blood Count 3.78 M/mm3 (4.20-5.40); Red Cell Distribution Width 13.2 % (11.6-14.4); White Blood Count 12.5 K/mm3 (4.8-10.8)
[2023-01-29 09:09] LABS: Add Urine Microscopic? YES; Color Urine Light Yellow (Yellow)
[2023-01-29 09:10] LABS: Bacteria Urine 1+ /hpf; Squamous Epithelial Cell Urine Rare /hpf (Few); WBC Urine 16-20 /hpf (0-3)
[2023-01-29 09:11] LABS: Hemoglobin A1C 5.6 % (<5.7)
[2023-01-29 10:04] LABS: Erythrocyte Sedimentation Rate 12 mm/hr (0-20)
[2023-01-29 10:05] LABS: Alanine Aminotransferase 37 U/L (14-59); Albumin Level 3.5 g/dL (3.4-5.0); Alkaline Phosphatase 115 U/L (46-116); Anion Gap 6 mmol/L (8-16); Aspartate Amino Transferase 22 U/L (15-37); Bilirubin,Total 0.5 mg/dL (0.00-1.00); Blood Urea Nitrogen 13 mg/dL (7-18); Calcium 9.1 mg/dL (8.5-10.1); Carbon Dioxide 31 mmol/L (21-32); Chloride 105 mmol/L (98-108); Cholesterol 198 mg/dL (0-200); Creatine Kinase 91 U/L (26-192); Estimated Glomerular Filt Rate > 60; Glucose 93 mg/dL (70-99); HDL Direct 71 mg/dL (40-60); LDL Cholesterol Calculated 114 mg/dL (<130); Osmolality Calculated 294 mOsm/kg (285-295); Potassium 3.9 mmol/L (3.5-5.1); Sodium 142 mmol/L (136-145); Total Protein 6.7 g/dL (6.4-8.2); Triglycerides 65 mg/dL (0-150); Vitamin B12 1106 pg/mL (193-986)
== END 2023-01-29 08:45 | disposition home or self-care (01) ==
LOC: CHSLAB 08:47
PROVIDERS: PCP Internal Medicine; Visit Provider Internal Medicine
DX: E78.2 Mixed hyperlipidemia (principal); E53.8 Deficiency of other specified B group vitamins; R73.01 Impaired fasting glucose
CPT/HCPCS: 36415; 80053; 80061; 81001; 82550; 82607; 83036; 85025; 85652

== ENCOUNTER 2023-02-03 11:59 | Outpatient (CLI) | payer MEDICARE, SELFPAY ==
--- NOTE | ~2023-02-03 | MM_ITS ---
EXAMINATION: MM screening caleb BI w raúl HISTORY: Screening TECHNIQUE: Craniocaudal and mediolateral oblique 3-D tomosynthesis images were obtained and synthetic 2-D images were generated. CAD analysis was submitted and interpreted. COMPARISON: Comparison to multiple prior studies sequentially, with oldest reviewed study dated 06/2013. BREAST PARENCHYMAL COMPOSITION: Breast composed of scattered areas of fibroglandular density FINDINGS: There is no evidence of suspicious mass, calcification, or architectural distortion to sugg est malignancy in either breast. There has been no suspicious interval change. IMPRESSION: 1. No mammographic evidence of malignancy. 2. Recommend routine screening mammography in one year. BI-RADS Category 1: Negative Reviewed, dictated and finalized at location A.
== END 2023-02-03 12:00 | disposition home or self-care (01) ==
LOC: CHSIMG 12:00
PROVIDERS: PCP Internal Medicine; Visit Provider Internal Medicine
DX: Z12.31 Encounter for screening mammogram for malignant neoplasm of breast (principal)
CPT/HCPCS: 77063; 77067

== ENCOUNTER 2023-02-17 13:46 | Outpatient (RCR) | payer MEDICARE, SELFPAY ==
--- NOTE | 2023-02-17 14:58 | PTOPEVAL1 ---
Assessment and note entered by Miguel Ruiz Evaluation Information Assessment Status Evaluation Diagnosis bilateral hip pain Onset 01/31/23 Subjective Information Pt. reports that she has had years of pain on the outside of the hips. She reports that the pain will radiate down both thighs. She reports that the left thigh hurts worse than the right. She reports she has to lay on a heating pad to ease her pain. She reports that pain is worsend after getting up from sitting, standing too long and walking long distance. She reports that she got a cortisone injection described around the trochanter on both right and left. She reports that she had 3-4 days of pain relief with the injection. She states that pain will wake her at night frequently and she is getting about 5 hours of off/on sleep nightly due to pain. She reports that she will get pain going across the low back. She reports she has hx of osteoporosis. She reports that left hip pain is greater than the right. She states that she can stand for about 15 mintes before having to sit. She reports she enjoys walking for exercise, but cannot currently due to pain. Reported Pain Level Pain Score 8: Self Report Assessment PT Clinical Summary Pt. is a 62 year old female who enters the clinic with bilateral hip pain. Pt. has presentation consistent with trochanteric bursitis as well as lumbar radiculopathy. She currently presents with pain around the trochanter and into the gluteal mm., proximal l.e. weakness, impaired gait, impaired trunk mobility and functional decline. Continued skilled PT is indicated in order to improve these areas to allow the pt. to be able to complete all IADL's without limitation. Plan of Care Interventions Electrical Stimulation,Hot Pack/Cold Pack,Manual Therapy,Mechanical Traction,Neuro Re-education, Patient/Caregiver Educati,Therapeutic Activities, Therapeutic Exercise PT Services Indicated Yes Treatment Frequency and 2x/week x 8 visits Duration These treatments will address the objective and functional deficits as defined above. The patient will be advanced safely and appropriately in order for the patient to progress towards his/her prior level of function. Additional exercises will be introduced and as well as a comprehensive home exercise program upon discharge, if needed, ?to ensure carryover of functional gains achieved in the clinic. This ronald
== END 2023-03-10 20:20 | disposition home or self-care (01) ==
LOC: CHSPT 13:46
PROVIDERS: PCP Internal Medicine; Visit Provider Internal Medicine Rheumatology
DX: M76.30 Iliotibial band syndrome, unspecified leg (principal); M70.60 Trochanteric bursitis, unspecified hip
CPT/HCPCS: 97014; 97110; 97140; 97161; G0283

== ENCOUNTER 2023-02-20 14:44 | Outpatient (CLI) | payer MEDICARE, SELFPAY ==
--- NOTE | ~2023-02-20 | CT_ITS ---
EXAMINATION: CT lung screening DATE: 02/20/2023 14:58 INDICATION: Personal history of nicotine dependence TECHNIQUE: Computed tomography (CT) of the chest was performed without intravenous contrast. The dose -length product was 71.29 mGy-cm. Automated exposure control and iterative reconstruction technique w ere employed. COMPARISON: CT dated 02/15/2022 FINDINGS: Mild mediastinal lymphadenopathy, likely reactive. Heart size normal. No significant pleura l or pericardial effusion. Mild atherosclerosis. The upper abdomen is unremarkable. There are small c entrilobular nodules in the right middle lobe measuring 3 mm. There are additional right upper lobe n odules measuring 3 mm or less. There is emphysema. No endobronchial lesions. No pneumothorax. Mild th oracic spondylosis. IMPRESSION: 1. Lung-RADS category 2: Benign appearance or behavior. Continue annual screening with noncontrast lo w-dose chest CT in 12 months. Reviewed, dictated and finalized at location A. IMPRESSION: 1. Lung-RADS category 2: Benign appearance or behavior. Continue annual screeni ng with noncontrast low-dose chest CT in 12 months.
== END 2023-02-20 14:45 | disposition home or self-care (01) ==
LOC: CHSIMG 14:44
PROVIDERS: PCP Internal Medicine; Visit Provider Internal Medicine
DX: Z12.2 Encounter for screening for malignant neoplasm of respiratory organs (principal); Z87.891 Personal history of nicotine dependence
CPT/HCPCS: 71271

== ENCOUNTER 2023-02-27 10:42 | Outpatient (CLI) | payer MEDICARE, SELFPAY ==
--- NOTE | ~2023-02-27 | DEXA_ITS ---
Bone Density Report Name: SHANICE CAMPBELL Age: 62 Sex: Female Ethnicity: White Date of : 1960 Indication: postmenopausal; screening for osteoporosis; height loss; asthma or emphysema; hysterectomy; rheumatoid arthritis; Referring Provider: NICKOLAS PORTER Study: Bone densitometry was performed. Exam Date: February 27, 2023 Accession number: [id number] Bone Density: Region BMD T-score Z-score Classification AP Spine(L1-L4) 0.743 -2.8 -1.3 Osteoporosis Femoral Neck (Left) 0.589 -2.3 -1.0 Osteopenia Total Hip (Left) 0.721 -1.8 -0.8 Osteopenia Femoral Neck (Right) 0.589 -2.3 -1.0 Osteopenia Total Hip (Right) 0.722 -1.8 -0.8 Osteopenia Femoral Neck Mean 0.589 -2.3 -1.0 Osteopenia Total Hip Mean 0.721 -1.8 -0.8 Osteopenia World Health Organization criteria for BMD impression classify patients as: Normal (T-score at or above -1.0), Osteopenia (T-score between -1.0 and -2.5), or Osteoporosis (T-score at or below -2.5). 10-year Fracture Risk: FRAX not reported because: Some T-score for Spine Total or Hip Total or Femoral Neck at or below -2.5 Clinical Information Provided by Patient: Has rheumatoid arthritis Has used the following medications: Vitamin D, Calcium Has the following medical conditions: Asthma or Emphysema, Hysterectomy Patient maximum height was 64 Menopause Age: 31 No regular weight bearing exercise Drinks caffeinated beverages Onset of menses at age 15 Number of children 1 Impression: The patient has osteoporosis, based on the Total Spine T-score. Discussion: INCREASED RISK OF FRACTURE. BONE DENSITY IS UNDESIRABLY LOW AT ONE OR MORE SKELETAL SITES, CONSISTENT WITH POSTMENOPAUSAL OSTEOPOROSIS. This patient's lowest T-score meets the World Health Organization's (WHO) criteria for osteoporosis at one or more sites (T-score -2.5 or below). In untreated patients, the risk of osteoporotic fracture increases approximately two-fold for each 1.0 SD decrease in T-score. Low bone density is not the only risk factor for fracture; also consider factors such as patient's age, frailty or poor health, risk of falling, risk of injury, previous osteoporotic fracture, family history of osteoporosis, cigarette smoking, low body weight, etc. Not everyone with low bone mineral density has osteoporosis; osteomalacia and other metabolic bone disorders should also be considered. Patients who have osteoporosis should be evaluated for specific diseases and conditions (secondary causes) that may cause or contribute to bone loss. The [place] [employer]ocrinologists (AACE) and National Osteoporosis Foundation (NOF) recommend pharmacologic intervention for all postmenopausal women whose T-score is in this range. The patient should follow a healthful lifestyle (good nutrition with adequate calcium and vitamin D, and appropriate weight-bearing exercise). Nayeli
== END 2023-02-27 10:43 | disposition home or self-care (01) ==
LOC: CHSIMG 10:43
PROVIDERS: PCP Internal Medicine; Visit Provider Internal Medicine
DX: Z78.0 Asymptomatic menopausal state (principal); M81.0 Age-related osteoporosis without current pathological fracture; M85.89 Other specified disorders of bone density and structure, multiple sites
CPT/HCPCS: 77080

== ENCOUNTER 2023-03-21 10:37 | Outpatient (CLI) | payer MEDICARE, SELFPAY ==
[2023-03-21] MEDS: ZOLEDRONIC ACID 5 MG/100 ML 100 ML 400 MG IVPB (10:50)
[2023-03-21 10:56] VITALS: BMI 26.4
[2023-03-21 10:57] VITALS: BP 114/69; PULSE 78; RESP 14; TEMP 36.4; O2SAT 97
--- NOTE | 2023-03-21 11:14 | PC.NURSE ---
Patient here for IV Reclast infusion. Education given. All questions/concerns answered. IV Reclast administered. See MAR. Tolerated well. Safe exit of hospital per self/amb.
== END 2023-03-21 10:38 | disposition home or self-care (01) ==
PROVIDERS: PCP Internal Medicine; Visit Provider Internal Medicine
DX: M81.0 Age-related osteoporosis without current pathological fracture (principal)
CPT/HCPCS: 96365; 96374; J3489

== ENCOUNTER 2023-04-08 14:49 | Outpatient (CLI) | payer MEDICARE, SELFPAY ==
[2023-04-08 15:06] LABS: Basophils Absolute Auto 0.08 K/mm3 (0.00-0.10); Basophils Percent Auto 0.9 % (0.0-1.0); Eosinophils Absolute Auto 0.16 K/mm3 (0.02-0.50); Eosinophils Percent Auto 1.7 % (1.0-6.0); Hematocrit 39.9 % (35.0-49.0); Hemoglobin 13.2 g/dL (12.0-15.0); Immature Granulocyte Absolute 0.05 K/mm3 (0.00-0.00); Immature Granulocyte Percent A 0.5 % (0.0-0.0); Lymphocytes Absolute Auto 2.25 K/mm3 (1.10-4.50); Lymphocytes Percent Auto 24.1 % (18.0-42.0); Mean Corpuscular HGB Conc 33.1 g/dL (32.0-36.0); Mean Corpuscular Hemoglobin 34.2 pg (27.0-31.0); Mean Corpuscular Volume 103.4 fL (78.0-102.0); Mean Platelet Volume 9.6 fl (9.2-11.8); Monocytes Absolute Auto 1.19 K/mm3 (0.10-0.90); Monocytes Percent Auto 12.7 % (2.0-11.0); Neutrophils Absolute Auto 5.6 K/mm3 (1.7-7.2); Neutrophils Percent Auto 60.1 % (50.0-70.0); Platelet Count Result 239 K/mm3 (150-420); Red Blood Count 3.86 M/mm3 (4.20-5.40); Red Cell Distribution Width 13.6 % (11.6-14.4); White Blood Count 9.3 K/mm3 (4.8-10.8)
[2023-04-08 15:42] LABS: Alanine Aminotransferase 40 U/L (14-59); Albumin Level 3.7 g/dL (3.4-5.0); Alkaline Phosphatase 124 U/L (46-116); Anion Gap 4 mmol/L (8-16); Aspartate Amino Transferase 24 U/L (15-37); Bilirubin,Total 0.2 mg/dL (0.00-1.00); Blood Urea Nitrogen 11 mg/dL (7-18); Calcium 9.3 mg/dL (8.5-10.1); Carbon Dioxide 34 mmol/L (21-32); Chloride 100 mmol/L (98-108); Estimated Glomerular Filt Rate 56; Glucose 97 mg/dL (70-99); Osmolality Calculated 285 mOsm/kg (285-295); Sodium 138 mmol/L (136-145); Total Protein 6.9 g/dL (6.4-8.2)
[2023-04-08 15:43] LABS: CRP < 0.5 mg/dL (0.0-0.9)
[2023-04-08 16:06] LABS: Erythrocyte Sedimentation Rate 8 mm/hr (0-20)
== END 2023-04-08 14:50 | disposition home or self-care (01) ==
LOC: CHSLAB 14:52
PROVIDERS: PCP Internal Medicine; Visit Provider Internal Medicine Rheumatology
DX: Z79.899 Other long term (current) drug therapy (principal)
CPT/HCPCS: 36415; 80053; 85025; 85652; 86140

== ENCOUNTER 2023-04-24 17:27 | Outpatient (CLI) | payer MEDICARE, SELFPAY ==
[2023-04-24 19:41] LABS: Anion Gap 4 mmol/L (8-16); Blood Urea Nitrogen 14 mg/dL (7-18); Calcium 9.7 mg/dL (8.5-10.1); Carbon Dioxide 35 mmol/L (21-32); Chloride 102 mmol/L (98-108); Estimated Glomerular Filt Rate 60; Glucose 94 mg/dL (70-99); Osmolality Calculated 292 mOsm/kg (285-295); Potassium 3.9 mmol/L (3.5-5.1); Sodium 141 mmol/L (136-145)
== END 2023-04-24 17:28 | disposition home or self-care (01) ==
LOC: CHSLAB 17:28
PROVIDERS: PCP Internal Medicine; Visit Provider Internal Medicine Rheumatology
DX: Z79.899 Other long term (current) drug therapy (principal)
CPT/HCPCS: 36415; 80048

== ENCOUNTER 2023-07-23 11:32 | Outpatient (CLI) | payer MEDICARE, SELFPAY ==
[2023-07-23 11:48] LABS: Basophils Absolute Auto 0.05 K/mm3 (0.00-0.10); Basophils Percent Auto 0.7 % (0.0-1.0); Eosinophils Absolute Auto 0.18 K/mm3 (0.02-0.50); Eosinophils Percent Auto 2.7 % (1.0-6.0); Hematocrit 39.4 % (35.0-49.0); Hemoglobin 12.6 g/dL (12.0-15.0); Immature Granulocyte Absolute 0.03 K/mm3 (0.00-0.00); Immature Granulocyte Percent A 0.4 % (0.0-0.0); Lymphocytes Absolute Auto 2.02 K/mm3 (1.10-4.50); Lymphocytes Percent Auto 30.2 % (18.0-42.0); Mean Corpuscular Hemoglobin 32.2 pg (27.0-31.0); Mean Corpuscular Volume 100.8 fL (78.0-102.0); Mean Platelet Volume 9.7 fl (9.2-11.8); Monocytes Absolute Auto 0.64 K/mm3 (0.10-0.90); Monocytes Percent Auto 9.6 % (2.0-11.0); Neutrophils Absolute Auto 3.77 K/mm3 (1.70-7.20); Neutrophils Percent Auto 56.4 % (50.0-70.0); Platelet Count Result 204 K/mm3 (150-420); Red Blood Count 3.91 M/mm3 (4.20-5.40); Red Cell Distribution Width 15.1 % (11.6-14.4); White Blood Count 6.7 K/mm3 (4.8-10.8)
[2023-07-23 12:48] LABS: Erythrocyte Sedimentation Rate 18 mm/hr (0-20)
[2023-07-23 12:53] LABS: Alanine Aminotransferase 41 U/L (14-59); Albumin Level 3.5 g/dL (3.4-5.0); Alkaline Phosphatase 91 U/L (46-116); Anion Gap 9 mmol/L (4-12); Aspartate Amino Transferase 31 U/L (15-37); Bilirubin,Total 0.3 mg/dL (0.00-1.00); Blood Urea Nitrogen 11 mg/dL (7-18); Calcium 9.2 mg/dL (8.5-10.1); Carbon Dioxide 30 mmol/L (21-32); Chloride 104 mmol/L (98-108); Estimated Glomerular Filt Rate > 60; Glucose 106 mg/dL (70-99); Osmolality Calculated 295 mOsm/kg (285-295); Potassium 4.1 mmol/L (3.5-5.1); Sodium 143 mmol/L (136-145)
[2023-07-23 12:56] LABS: CRP < 0.5 mg/dL (0.0-0.9)
== END 2023-07-23 11:33 | disposition home or self-care (01) ==
LOC: CHSLAB 11:34
PROVIDERS: PCP Internal Medicine; Visit Provider Internal Medicine Rheumatology
DX: Z79.899 Other long term (current) drug therapy (principal)
CPT/HCPCS: 36415; 80053; 85025; 85652; 86140

== ENCOUNTER 2023-08-05 07:49 | Outpatient (CLI) | payer MEDICARE, SELFPAY ==
[2023-08-05 08:07] LABS: Basophils Absolute Auto 0.07 K/mm3 (0.00-0.10); Basophils Percent Auto 1.3 % (0.0-1.0); Eosinophils Absolute Auto 0.24 K/mm3 (0.02-0.50); Eosinophils Percent Auto 4.3 % (1.0-6.0); Hematocrit 39.3 % (35.0-49.0); Hemoglobin 12.6 g/dL (12.0-15.0); Immature Granulocyte Absolute 0.02 K/mm3 (0.00-0.00); Immature Granulocyte Percent A 0.4 % (0.0-0.0); Lymphocytes Absolute Auto 2.06 K/mm3 (1.10-4.50); Lymphocytes Percent Auto 37.3 % (18.0-42.0); Mean Corpuscular HGB Conc 32.1 g/dL (32-36); Mean Corpuscular Hemoglobin 32.2 pg (27.0-31.0); Mean Corpuscular Volume 100.5 fL (78.0-102.0); Monocytes Absolute Auto 0.73 K/mm3 (0.10-0.90); Monocytes Percent Auto 13.2 % (2.0-11.0); Neutrophils Absolute Auto 2.41 K/mm3 (1.70-7.20); Neutrophils Percent Auto 43.5 % (50.0-70.0); Platelet Count Result 196 K/mm3 (150-420); Red Blood Count 3.91 M/mm3 (4.20-5.40); Red Cell Distribution Width 15.8 % (11.6-14.4); White Blood Count 5.5 K/mm3 (4.8-10.8)
[2023-08-05 08:22] LABS: Appearance Urine Clear (Clear); Bilirubin Urine Negative (Negative); Blood Urine Negative (Negative); Color Urine Yellow (Yellow); Glucose Urine UA Negative (Negative); Ketones Urine Negative (Negative); Leukocyte Esterase Ur Negative (Negative); Nitrate Urine Negative (Negative); Protein Urine Negative (Negative); Urobilinogen Urine 0.2 mg/dL (0.2-1.0)
[2023-08-05 08:25] LABS: Add Urine Microscopic? NO
[2023-08-05 08:32] LABS: Hemoglobin A1C 5.4 % (<5.7)
[2023-08-05 09:07] LABS: Alanine Aminotransferase 44 U/L (14-59); Albumin Level 3.7 g/dL (3.4-5.0); Alkaline Phosphatase 77 U/L (46-116); Anion Gap 6 mmol/L (4-12); Aspartate Amino Transferase 29 U/L (15-37); Bilirubin,Total 0.3 mg/dL (0.00-1.00); Blood Urea Nitrogen 10 mg/dL (7-18); Calcium 8.6 mg/dL (8.5-10.1); Carbon Dioxide 31 mmol/L (21-32); Chloride 107 mmol/L (98-108); Cholesterol 176 mg/dL (0-200); Estimated Glomerular Filt Rate > 60; Glucose 92 mg/dL (70-99); HDL Direct 57 mg/dL (40-60); LDL Cholesterol Calculated 96 mg/dL (<130); Osmolality Calculated 297 mOsm/kg (285-295); Sodium 144 mmol/L (136-145); Total Protein 7.1 g/dL (6.4-8.2); Triglycerides 113 mg/dL (0-150)
[2023-08-05 09:08] LABS: Erythrocyte Sedimentation Rate 14 mm/hr (0-20)
[2023-08-05 09:13] LABS: CRP < 0.5 mg/dL (0.0-0.9)
== END 2023-08-05 07:50 | disposition home or self-care (01) ==
LOC: CHSLAB 07:51
PROVIDERS: PCP Internal Medicine; Visit Provider Internal Medicine
DX: M05.9 Rheumatoid arthritis with rheumatoid factor, unspecified (principal); E78.2 Mixed hyperlipidemia; E53.8 Deficiency of other specified B group vitamins; R73.01 Impaired fasting glucose
CPT/HCPCS: 36415; 80053; 80061; 81003; 83036; 85025; 85652; 86140

== ENCOUNTER 2023-10-20 07:04 | Outpatient (CLI) | payer MEDICARE, SELFPAY ==
--- NOTE | ~2023-10-20 | CT_ITS ---
EXAMINATION: CT soft tissue neck w con DATE: 10/20/2023 08:59 INDICATION: Vocal cord paralysis TECHNIQUE: Computed tomography (CT) of the neck was performed with 75 mL Omnipaque-350 intravenous co ntrast. Automated exposure control and iterative reconstruction technique were employed. The dose-hodan gth product was 501.09 mGy-cm. COMPARISON: None FINDINGS: Moderate emphysema in the visualized upper lungs. Normal caliber aortic arch with minimal atheroscler otic calcification and no aneurysm or dissection. The visualized superior mediastinum which includes the AP window are normal with no pathologically enlarged lymphadenopathy or other abnormal masses. Th e thyroid and bilateral parotid and submandibular glands are normal. The cervical vasculature is unre markable. No pathologically enlarged cervical lymphadenopathy or other abnormal masses or fluid colle ctions. Normal epiglottis and prevertebral soft tissues. The larynx appears unremarkable with symmetr ic closed vocal cords. Visualized portions of the orbits, paranasal sinuses and mastoid air cells are normal. Severe cervical spondylosis. Indeterminate sclerotic lesion filling the C3 vertebral body wh ich has been present and noted on imaging dating back to 11/07/2011. IMPRESSION: 1. No pathologically enlarged lymphadenopathy or other abnormal masses in the neck or superior medias tinum. Specifically no lesions identified along the course of the laryngeal nerves. 2. Normal and symmetric appearance of the larynx. 3. Chronic sclerotic lesion in the C3 vertebral body which has been present dating back to 2011 which could be either benign or treated metastatic disease. Correlate with clinical history. Reviewed, dictated and finalized at location B. IMPRESSION: 1. No pathologically enlarged lymphadenopathy or other abnormal masses in the n mich or superior mediastinum. Specifically no lesions identified along the cours e of the laryngeal nerves. 2. Normal and symmetric appearance of the larynx. 3. Chronic sclerotic lesion in the C3 vertebral body which has been present [place] ing back to 2011 which could be either benign or treated metastatic disease. Co rrelate with clinical history.
[2023-10-20 08:11] LABS: Estimated Glomerular Filt Rate > 60
== END 2023-10-20 07:05 | disposition home or self-care (01) ==
PROVIDERS: PCP Internal Medicine
DX: J38.00 Paralysis of vocal cords and larynx, unspecified (principal); M89.9 Disorder of bone, unspecified
CPT/HCPCS: 70491; Q9967

== ENCOUNTER 2024-02-05 11:50 | Outpatient (CLI) | payer MEDICARE, SELFPAY ==
--- NOTE | ~2024-02-05 | MM_ITS ---
EXAMINATION: MM screening caleb BI w raúl HISTORY: Screening TECHNIQUE: Craniocaudal and mediolateral oblique 3-D tomosynthesis images were obtained and synthetic 2-D images were generated. CAD analysis was submitted and interpreted. COMPARISON: Comparison to multiple prior studies sequentially, with oldest reviewed study dated 01/02. BREAST PARENCHYMAL COMPOSITION: Not dense: There are scattered areas of fibroglandular density. FINDINGS: There is no evidence of suspicious mass, calcification, or architectural distortion to sugg est malignancy in either breast. There has been no suspicious interval change. IMPRESSION: 1. No mammographic evidence of malignancy. 2. Recommend routine screening mammography in one year. BI-RADS Category 1: Negative Reviewed, dictated and finalized at location B.
== END 2024-02-05 11:51 | disposition home or self-care (01) ==
PROVIDERS: PCP Internal Medicine; Visit Provider Internal Medicine
DX: Z12.31 Encounter for screening mammogram for malignant neoplasm of breast (principal)
CPT/HCPCS: 77063; 77067

== ENCOUNTER 2024-05-05 13:31 | Outpatient (CLI) | payer MEDICARE, SELFPAY ==
--- NOTE | ~2024-05-05 | CT_ITS ---
EXAMINATION: CT lung screening DATE: 05/05/2024 14:00 INDICATION: History of nicotine dependence TECHNIQUE: Computed tomography (CT) of the chest was performed without intravenous contrast. The dose -length product was 76.70 mGy-cm. Automated exposure control and iterative reconstruction technique w ere employed. COMPARISON: 02/20/2023 FINDINGS: Heart size normal. No significant pleural or pericardial effusion. No thoracic lymphadenopa thy. There is emphysema. No endobronchial lesions. No pneumothorax. There are few scattered small pul monary nodules measuring 3 mm or less. There is persistent reticulonodular densities in the right mid dle lobe without significant change. Mild thoracic spondylosis. No focal lytic or blastic lesions. IMPRESSION: 1. Lung-RADS category 2: Benign appearance or behavior. Continue annual screening with noncontrast lo w-dose chest CT in 12 months. Reviewed, dictated and finalized at location A. RECORDIST IMPRESSION: 1. Lung-RADS category 2: Benign appearance or behavior. Continue annual screeni ng with noncontrast low-dose chest CT in 12 months.
[2024-05-05 13:47] LABS: Hematocrit 40.3 % (35.0-49.0); Hemoglobin 12.9 g/dL (12.0-15.0); Mean Corpuscular Hemoglobin 33.6 pg (27.0-31.0); Mean Corpuscular Volume 104.9 fL (78.0-102.0); Mean Platelet Volume 9.8 fl (9.2-11.8); Platelet Count Result 247 K/mm3 (150-420); Red Blood Count 3.84 M/mm3 (4.20-5.40); Red Cell Distribution Width 13.5 % (11.6-14.4); White Blood Count 8.6 K/mm3 (4.8-10.8)
[2024-05-05 14:35] LABS: Alanine Aminotransferase 64 U/L (14-59); Albumin Level 4.2 g/dL (3.4-5.0); Alkaline Phosphatase 104 U/L (46-116); Anion Gap 8 mmol/L (4-12); Aspartate Amino Transferase 44 U/L (15-37); Bilirubin,Total 0.4 mg/dL (0.00-1.00); Blood Urea Nitrogen 19 mg/dL (7-18); CRP 0.5 mg/dL (0.0-0.9); Calcium 9.3 mg/dL (8.5-10.1); Carbon Dioxide 30 mmol/L (21-32); Chloride 103 mmol/L (98-108); Estimated Glomerular Filt Rate 40; Glucose 135 mg/dL (70-99); Osmolality Calculated 296 mOsm/kg (285-295); Potassium 4.7 mmol/L (3.5-5.1); Sodium 141 mmol/L (136-145); Total Protein 7.6 g/dL (6.4-8.2)
[2024-05-05 14:58] LABS: Erythrocyte Sedimentation Rate 18 mm/hr (0-20)
== END 2024-05-05 13:32 | disposition home or self-care (01) ==
PROVIDERS: PCP Internal Medicine; Visit Provider Internal Medicine Rheumatology
DX: M05.9 Rheumatoid arthritis with rheumatoid factor, unspecified (principal); Z12.2 Encounter for screening for malignant neoplasm of respiratory organs; Z87.891 Personal history of nicotine dependence
CPT/HCPCS: 36415; 71271; 80053; 85027; 85652; 86140

== ENCOUNTER 2024-06-03 15:26 | Outpatient (CLI) | payer MEDICARE, SELFPAY ==
--- OUTSIDE RECORDS SUMMARY | 2024-06-03 15:29 | XMS_ITS | Clinical Summary ---
Author Organization [facility] Address [address] [place] [address] Care Team Providers Care Hard Hat Diver Name Role Phone Josefina Nguyen MD Primary Care Provider [phone] Allergies No known active allergies Medications buPROPion SR 150 MG 12 hr tablet 06/28/2020 Act montse busPIRone 10 MG tablet Take 10 mg by mouth 2 (two) times daily. 06/28/2020 Active celecoxib 200 MG capsule 06/28/2020 Active escitalopram 10 MG tablet 05/24/2020 Active lovastatin 10 MG tablet Take 20 mg by mouth daily with supper. Active pantoprazole EC 40 MG tablet Take 40 mg by mouth daily. Active ibuprofen 200 MG tablet Take 200 mg by mouth every 6 (six) hours as needed for Pain. Pt 3 pills in the AM and 3 pills in the PM Active HYDROcodone-acet aminophen 5-325 MG tabletIndication s:Acute Pain < 7 Day Supply Take 1 tablet by mouth every 4 (four) hours as needed for Pain. Indications : Acute Pain < 7 Day Supply 15 tablet 08/09/2020 Active Active Problems Problem Noted Date Diagnosed Date Carpal tunnel syndrome of left wrist 07/31/2020 Carpal tunnel syndrome of right wrist 07/31/2020 Family History Medical History Relation Comments No Known Problems Father No Known Problems Maternal Grandfather No Known Problems Maternal Grandmother No Known Problems Mother No Known Problems Paternal Grandfather No Known Problems Paternal Grandmother Relation Status Comments Father Alive Maternal Grandfather Maternal Grandmother Mother Alive Paternal Grandfather Paternal Grandmother Social History Tobacco Use Types Packs/Day Years Used Date Smoking Tobacco: Former Smokeless Tobacco: Never Alcohol Use Standard Drinks/Week Comments Not Currently 0 (1 standard drink = 0.6 oz pur e alcohol) Comments No Sex and Gender Information Value Date Recorded Sex Assigned at Not on file 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 Gender Identity Not on file Sexual Orientation Not on file Last Filed Vital Signs Vital Sign Reading Time Taken Comments Blood Pressure 150/83 08/09/2020 12:15 PM CDT Pulse 66 08/09/2020 12:15 PM CDT Temperature 35.9 C (96.6 F) 08/09/2020 12:15 PM CDT Respiratory Rate 16 08/09/2020 12:15 PM CDT Oxygen Saturation 94% 08/09/2020 12:15 PM CDT Inhaled Oxygen Concentration - - Weight 67.1 kg (148 lb) 08/21/2020 1:31 PM CDT Height 167.6 cm (5' 6 ) 08/21/2020 1:31 PM CDT Body Mass Index 23.89 08/21/2020 1:31 PM CDT Plan of Treatment Health Maintenance Due Date Last Done Comments Colorectal Cancer Screening Colonoscopy (10 Years) 1961 Annual Physical 1964 DTaP, Tdap and Td Vaccines ( 1 - Tdap) 1980 Mammogram Screening 2001 Zoster Vaccines (1 of 2) 11/22/2011 COVID-19 Vaccine (2023-2 5 season) 2023 07/28/2020, 06/28/2020 Influenza Adult (#1) 2024 RSV Immunization or 60+ Years (1 - 1-dose 75+ series) 2036 Pneumococcal Vaccine: Pediatrics (0 to 5 Years) and At-Risk Patients (6 to 64 Years) Aged Out 08/20/2018 No longer eligible b ased on patient's age to complete this topic Hepatitis C Completed 10/02/2023 Meningococcal B Vaccine Aged Out No l onger eligible based on patient's age to complete this topic Meningococcal Vaccine Aged Out No porsche dave eligible based on patient's age to complete this topic RSV Immunizations Under 20 Months Aged Out No longer eligible b ased on patient's age to complete this topic Procedures Procedure Name Priority Date/Time Associated Diagnosis Comments HEPATITIS C ANTIBODY Routine 10/02/2023 3:01 PM CDT Rheumatoid arthritis with rheumatoid factor, unspecified (CMS/HCC HHS/HCC) Vitamin D deficiency, unspecified from Last 3 Months or Most Recently Relevant to Health Maintenance Results * HEPATITIS C ANTIBODY (10/02/2023 3:01 PM CDT) HEPATITIS C AB NON-REACTI VE NON-REACT MONTSE 10/03/2023 8:22 PM CDT [facility] Comment: ANTIBODIES TO HCV NOT DETECTED. DOES NOT EXCLUDE THE POSSIBILITY OF EXPOSURE TO HCV. 10/02/2023 3:01 PM CDT us Homer Jefferson MD LABORATORY Final Resul t [facility] [address] [place] [address], [id number] from Last 3 Months or Most Recently Relevant to Health Maintenance Insurance [facility] Care Teams Hard Hat Diver Relationship Specialty Start Date End Date Josefina Nguyen MD [address] [place] [address] PCP - General INTERNAL MEDICINE 07/27/20
--- OUTSIDE RECORDS SUMMARY | 2024-06-03 15:29 | XMS_ITS | Data Portability ---
Author Organization [facility], [address] [facility] ([place]) Address [address] [place] [address] Care Team Providers Care Roustabout Crew Pusher Name Role Phone NICKOLAS PORTER Primary Care Provider [phone] NICKOLAS PORTER Referring Provider [phone] Assessment Encounter Date Assessment Date Assessment LastModified by Organization Details LastModified Time 10/02/2023 10/02/2023 IMPRESSION: 1. RA flare. 2. Fibromyalgia syndrome. 3. Bilateral hip trochanteric bursitis. 4. Osteoarthritis. PLAN: 1. DMARD labs now and to include a CPK, vitamin D level, hepatitis B and C screens and QuantiFERON-TB Gold assay. 2. IM Depo Medrol 100 mg x1 today. 3. Continue current arthritic pharmacotherapeutic regimen. 4. Followup visit in 3 months. nv [email or web address] Not available 10/04/2023 10:03:13 01/01/2024 01/01/2024 IMPRESSION 1. Seropositive RA with persistent activity. 2. Fibromyalgia syndrome. 3. bilateral hip trochanteric bursitis. 4. Osteoarthritis. PLAN 1. Labs as ordered including a CBC, CMP, and acute phase reactants as well as vitamin D level. 2. Continue current 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 and folate dosing. 3. Discontinue Enbrel. 4. IM Depo-Medrol 100 mg x1 today. 5. Rinvoq 15 mg po daily. Will seek prior authorization for this medication. I did discuss in detail its indications, risks, benefits, and potential side effects including risks of MACE events, VTE events, and cytopenias, as well as infection, hyperlipidemia, and liver irritation. We also discussed the risk of shingles. She has had her Shingrix vaccine which will hopefully help reduce this risk by almost 97%. 6. DMARD labs monthly with q. 6-month lipid profiles once she starts Rinvoq. 7. Follow-up visit in four to five months for a recheck. annel [email or web address] Not available 01/02/2024 12:02:42 Plan of Treatment Reminders Order Date Submit Date Provider Last Modified By Organization Details Last Modified Time Details Appointments Establish ed Patient 15.EST 2024 11:00A M Dr. Homer Jefferson Not available Not available Not available Establish ed Patient 15.EST 2024 11:00A M Dr. Homer Jefferson Not available Not available Not available Lab CBC 2023 024 [email or web address] [facility], [address] [place] [address], [id number], 05/07/2024 10:20:13 CMP, serum or plasma 2023 024 [email or web address] [facility], [address] [place] [address], [id number], 04/20/2024 11:01:07 ESR (erythroc yte sedimenta tion rate), blood 2023 024 [email or web address] [facility], [address] [place] [address], [id number], 04/20/2024 11:01:07 C-reactiv e protein, quantitat montse, serum or plasma 2023 024 [email or web address] [facility], [address] [place] [address], [id number], 04/20/2024 11:01:07 CBC 2023 024 [email or web address] [facility], [address] [place] [address], [id number], 04/20/2024 11:01:07 CMP, serum or plasma 2023 024 [email or web address] [facility], [address] [place] [address], [id number], 05/06/2024 09:03:48 ESR (erythroc yte sedimenta tion rate), blood 2023 024 [email or web address] [facility], [address] [place] [address], [id number], 05/06/2024 09:02:23 C-reactiv e protein, quantitat montse, serum or plasma 2023 024 [email or web address] [facility], [address] [place] [address], [id number], 05/06/2024 09:03:30 CBC 2023 024 [email or web address] [facility], [address] [place] [address], [id number], 10/03/2023 15:30:56 CMP, serum or plasma 2023 024 CASE [facility], [address] [place] [address], [id number], 10/13/2023 11:26:43 ESR (erythroc yte sedimenta tion rate), blood 2023 024 [email or web address] [facility], [address] [place] [address], [id number], 10/03/2023 15:30:56 unlisted lab - CRP ([facility] only) 2023 024 [email or web address] [facility], [address] [place] [address], [id number], 10/03/2023 15:30:56 CK (creatine kinase), total, serum 2023 024 [email or web address] [facility], [address] [place] [address], [id number], 10/03/2023 15:30:56 HBsAg (hepatiti s B surface Ag), serum 2023 024 [email or web address] [facility], [address] [place] [address], [id number], 10/06/2023 14:46:25 hepatitis B core Ab, total, serum 2023 024 [email or web address] [facility], [address] [place] [address], [id number], 10/06/2023 14:46:17 hepatitis C Ab, serum 2023 024 [email or web address] [facility], [address] [place] [address], [id number], 10/06/2023 14:46:08 tb (M tuberculo sis), ifn-gamma connor, blood 2023 024 [email or web address] [facility], [address] [place] [address], [id number], 10/06/2023 14:45:58 vitamin D, 25-hydrox y, total, serum 2023 024 CASE [facility], [address] [place] [address], [id number], 10/13/2023 11:26:43 Referral None recorded. Procedures None recorded. Surgeries None recorded. Imaging None recorded. Medication Orders Depo-Medr ol 80 mg/mL suspensio n for injection 2023 024 [facility] #[id number], [address] [place], [address], 01/02/2024 09:04:06 leucovori n calcium 5 mg tablet 2023 024 [facility] #[id number], [address] [place], [address], 10/03/2023 15:30:56 Depo-Medr ol 80 mg/mL suspensio n for injection 2023 Marlene khoi [id number], [address] [place], [address], 10/03/2023 15:30:56 Patient TargetsNo targets recorded. Patient InstructionsNo instructions recorded. Reason for Referral None Reported. Results Created Date Observation Date Name Description Value Unit Range Abnormal Flag Note LastModifiedBy Organization Detail LastModifiedTime Result Notes None recorded. Problems Name Problem SNOMED Code Status Onset Date Resolution Date Notes Provider Name and Address Organization Details Recorded Time Fibromyalgia 482177395 Active 2023 Homer Jefferson MD [address] [place] [address], [id number], [facility] 4 15:53:58 Seropositive rheumatoid arthritis 215625206 [facility] 14[facility]47[facility]32 Osteoarthritis 368091224 [facility] 14:47:38 Vitamin D deficiency 28766825 Active 2023 Sharyn Link [facility] 4 15:15:38 Problem Notes None recorded. Procedures Surgical History Date Name Laterality Status Provider Name and Address Organization Details Recorded Time Total hysterectomy completed Not Available Health Note 09/30/2023 14:45:09 Imaging Results None recorded. Procedure Notes None recorded. Medical Equipment None Reported. Allergies No known drug allergies Medications Name Sig Start Date Stop Date Status Note LastModified by Organization Details LastModified Time Prescript ion - New 06/03 completed Phone Representative: DEBI (CASE CONRAD), HOMER (Rheumat ology) , sPrescri ption Form Not Available Not Available Not Available bupropion HCl SR 150 mg tablet,12 hr sustained -release active Not Available Not Available Not Available azithromy giovanna 250 mg tablet TAKE 2 TABLETS BY MOUTH TODAY, THEN TAKE 1 TABLET DAILY FOR 4 DAYS DIRECTED 09/24 completed Not Available Not Available Not Available fluconazo le 150 mg tablet 06/03 completed Not Available Not Available Not Available valacyclo vir 1 gram tablet TAKE 2 TABLET BY MOUTH EVERY 12 HOURS X 1 DAY 06/03 completed Not Available Not Available Not Available meloxicam 15 mg tablet 09/24 completed Not Available Not Available Not Available famotidin e 40 mg tablet TAKE 1 TABLET BY MOUTH EVERY DAY AT BEDTIME NEEDED FOR 90 DAYS 06/03 completed Not Available Not Available Not Available prednison e 5 mg tablet 4 TABS FOR 5 DAYS 3 TABS FOR 5 DAYS 2 TABS FOR 5 DAYS 1 TAB FOR 5 DAYS 06/03 completed Not Available Not Available Not Available Tylenol Arthritis Pain 650 mg tablet,ex tended release Take 2 tablets every 8 hours by oral route as needed. active Not Available Not Available No t Available valacyclo vir 500 mg tablet TAKE 1 TABLET BY MOUTH EVERY DAY active Not Available Not Available No t Available ciproflox acin 500 mg tablet TAKE 1 TABLET BY MOUTH EVERY 12 HOURS 06/03 completed Not Available Not Available Not Available Depo-Medr ol 80 mg/mL suspensio n for injection INJECT 100 MG INTRA-MU SCULARLY 2023 active Not Available Not Available Not Avai lable Aleve 220 mg tablet Take 1 tablet by oral route as needed. 10/01 completed Not Available Not Available Not Available methotrex ate sodium 2.5 mg tablet TAKE 7 TABLETS BY MOUTH ONCE WEEKLY (OK TO SPLIT DOSE, 4 TABLETS IN AM, 3 TABLETS IN PM OF SAME DAY) active Not Available Not Available No t Available prednison e 1 mg tablet TAKE 3 TABS ONCE DAILY X30 DAYS, THEN 2 TABS ONCE DAILY X30 DAYS, THEN 1 TAB DAILY X30 DAYS. 09/24 completed Not Available Not Available Not Available pantopraz ole 40 mg tablet,de layed release active Not Available Not Available Not Available buspirone 10 mg tablet TAKE 1 TABLET BY MOUTH TWICE A DAY 06/03 completed Not Available Not Available Not Available leucovori n calcium 5 mg tablet TAKE 1 TABLET ONCE WEEKLY 24 HOURS AFTER METHOTRE XATE DOSE 2024 active Not Available Not Available Not Avai lable lovastati n 20 mg tablet active Not Available Not Available Not Available methylpre dnisolone 4 mg tablets in a dose pack TAKE 6 TABLETS ON DAY 1 DIRECTED ON PACKAGE AND DECREASE BY 1 TAB EACH DAY FOR A TOTAL OF 6 DAYS 09/24 completed Not Available Not Available Not Available Vitamin B-12 1,000 mcg tablet Take 1 tablet every day by oral route. active Not Available Not Available No t Available buspirone 15 mg tablet Take 1 tablet twice a day by oral route. active Not Available Not Available No t Available escitalop torito 10 mg tablet active Not Available Not Available Not Available nitrofura ntoin monohydra te/macroc rystals 100 mg capsule TAKE 1 CAPSULE BY MOUTH EVERY 12 HOURS WITH FOOD 09/24 completed Not Available Not Available Not Available Enbrel SureClick 50 mg/mL (1 mL) subcutane ous pen injector Inject 1 mL every week by subcutan eous route. 06/03 completed Not Available Not Available Not Available Rinvoq 15 mg tablet,ex tended release Take 1 tablet by mouth daily 06/03 completed Not Available Not Available Not Available Vitals Date Recorded Body height Body mass index (BMI) Body weight Heart rate Oxygen saturation Oxygen saturation in Arterial blood by Pulse oximetry Pain severity - 0-10 verbal numeric rating [Score] - Reported Systolic blood pressure Diastolic blood pressure Provider Name and Address Organization Details Last Updated DateTime 4 162.56 cm 26.4 kg/m2 74211.2 2 g 77 /min 97 % 97 % 8 126 mm[Hg] 74 mm[Hg] Sharyn Link [facility] 4 14:42:43 Date Recorded Body height Body mass index (BMI) Body weight Heart rate Oxygen saturation Oxygen saturation in Arterial blood by Pulse oximetry Pain severity - 0-10 verbal numeric rating [Score] - Reported Systolic blood pressure Diastolic blood pressure Provider Name and Address Organization Details Last Updated DateTime 4 162.56 cm 26.8 kg/m2 68514.1 3 g 66 /min 95 % 95 % 8 126 mm[Hg] 82 mm[Hg] Crista Hurley [facility] 4 15:05:58 Date Recorded Body height Body mass index (BMI) Body weight Heart rate Oxygen saturation Oxygen saturation in Arterial blood by Pulse oximetry Pain severity - 0-10 verbal numeric rating [Score] - Reported Systolic blood pressure Diastolic blood pressure Provider Name and Address Organization Details Last Updated DateTime 5 162.56 cm 26.6 kg/m2 77948.1 8 g 77 /min 97 % 97 % 4 116 mm[Hg] 60 mm[Hg] Crista Hurley [facility] 12:10:57 Social History Question Answer Notes LastModified by Organizat ion Details LastModified Time Tobacco Smoking Status Former Smoker Crista Hurley [facility] 01/01/2024 15:06:38 Do You Have An Advance Directive? No [email or web address] Information not available 09/30/2023 What Is Your Level Of Alcohol Consumption? None [email or web address] Information not available 09/30/2023 What Is Your Level Of Caffeine Consumption? Moderate [email or web address] Information not available 09/30/2023 Are You Currently Employed? No [email or web address] Information not available 09/30/2023 What Is Your Occupation? Retired [email or web address] Information not available 09/30/2023 How Many Times Per Week Do You Exercise? Less Than 1 Time Per Week [email or web address] Information not available 09/30/2023 When Did You Quit Smoking? 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 Yes [email or web address] Information not available 09/30/2023 What Was The Date Of Your Most Recent Tobacco Screening? 10/02/2023 [email or web address] Information not available 09/30/2023 What Is Your Relationship Status? Single [email or web address] Information not available 09/30/2023 Do You Use Any Illicit Or Recreational Drugs? No [email or web address] Information not available 09/30/2023 Sex: Unknown Functional Status Question Answer Note LastModified by Organization D etails LastModified Time What is your exercise level? None [email or web address] Information not available 09/30/2023 Mental Status None recorded. Family History Relationship Description Onset Age of this Age Resolved Age Notes LastModified by Organization Details LastModified Time Father Arthritis [email or web address] Not available 09/30/2023 14:45:09 Medical History Condition Response Diabetes N Anxiety Disorder Y Bleeding Disorder N Attention-deficit Hyperactivity Disorder N High Blood Pressure N Arthritis Y Hyperlipidemia N Cancer N Stroke N Thyroid Problems N Asthma N Depression Y COPD N Anemia N Seizures N Heart Disease N Fibromyalgia N Osteoporosis N Kidney Disease N Gynecological HistoryNo gynecological history recorded. 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 6761759665 00 Z79.631 Long-term current use of immunosuppressive drug 831545965 Z79.316 [id number] Homer Jefferson MD [facility] ([place]) [address] [place] [address] 01/01/2024 14:55:17 01/05/2024 10:39:11 Seropositive rheumatoid arthritis 798230824 M05.9 Osteoarthritis 999074891 M19.90 Fibromyalgia 720928811 M 79.7 Vitamin D deficiency 347 76738 E55.9 Rheumatoid arthritis of multiple joints 090985774 M05.89 Additional diagnosis detail: Other rheumatoid arthritis with rheumatoid factor of multiple sites job boss 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 (MEDICARE REPLACEMENT/A DVANTAGE - HMO) [id number] Hailey Nicole [id number] Hailey Nicole 01/01/2024 1 [facility] (MEDICARE REPLACEMENT/A DVANTAGE - HMO) [id number] Hailey Nicole [id number] Hailey Nicole Notes Date Note Type Note Provider Name and Address Organization Details Recorded Time 4 text/html The patient is a 62-year-old female with seropositive RA and osteoarthritis, who is here today for a followup visit. The patient continues on her 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 and Enbrel combination therapy and reports some recent flares of myalgias and arthralgias, especially throughout the hips and knees, hands and wrists. She rates her pain level today an 8.5/10 on a scale. Her morning stiffness is lasting 60-90 minutes in duration. The patient reports she has difficulty getting comfortable at night. She is not sleeping well because of having to toss and turn and reposition herself in bed for comfort. She denies any fever or chills. No skin rash or Raynaud s symptoms, aphthous ulcers, cough, pleurisy, shortness of breath, chest pain or palpitations, GERD, melena or hematochezia, diarrhea or constipation, anorexia or early satiety. No dysuria or gross hematuria or bleeding from the nares or gums. The patient describes some hip pain that remains localized to the trochanteric aspect of the hips and bothers him mostly if he lays on either side at night. It will cause him to have to turn and toss back and forth.nv Hailey Sifuentes a 62 year oldfemalepresenting for care. Homer Jefferson MD [facility], [address], [facility] 10/07/2023 23:12:01 4 text/html Hailey Sifuentes a 63 year oldfemalepresenting for care.A 63-year-old female with a history of seropositive RA, fibromyalgia syndrome, and osteoarthritis, who is here for a follow-up visit today. The patient continues on a combination moderately high-dose 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 therapy and Enbrel. She has now completed three months of Enbrel therapy and reports overall some persistent hand and wrist soreness and since a recent fall after tripping over a trailer hitch a few weeks ago, her hips have been bothering her at the trochanteric aspect of the hips. She did not seek medical care after the fall and was able to get back to her feet on her own. She rates her pain in the joints an 8/10 on a scale, although she has not had to seek any emergent care at Urgent Care or at the ER. Her morning stiffness in the joints is lasting half the day. This is all in the contest of the patient s springing to her feet when I entered the room and greeting me with a firm handshake without any signs of distress, whatsoever. She reports that the IM booster injection of steroid at the last visit was of tremendous benefit. She cannot tell as though the addition of Enbrel has led to any dramatic improvement in her joint symptoms. She tolerates both medications without post-dosing headache, nausea, vomiting, stomatitis, alopecia, cough, pleurisy, shortness of breath, chest pain, or palpitations, GERD, melena, hematochezia, diarrhea, constipation. No anorexia or early satiety, dysuria, or gross hematuria. She has no history of melanoma, solid organ malignancy, myocardial infarction, DVT, or PE. The patient reports that she has had her Shingrix vaccine. She has completed the full two-shot series last year. She has not had shingles.annel Jefferson MD [address] [facility], [place], [address], [facility] 01/05/2024 09:08:45 OBGyn Episode No OBEpisode recorded.
[2024-06-03 15:37] LABS: Hematocrit 36.4 % (35.0-49.0); Hemoglobin 11.6 g/dL (12.0-15.0); Mean Corpuscular HGB Conc 31.9 g/dL (32-36); Mean Corpuscular Hemoglobin 33.7 pg (27.0-31.0); Mean Corpuscular Volume 105.8 fL (78.0-102.0); Mean Platelet Volume 9.4 fl (9.2-11.8); Platelet Count Result 260 K/mm3 (150-420); Red Blood Count 3.44 M/mm3 (4.20-5.40); Red Cell Distribution Width 13.8 % (11.6-14.4); White Blood Count 6.2 K/mm3 (4.8-10.8)
[2024-06-03 16:23] LABS: Alanine Aminotransferase 34 U/L (14-59); Albumin Level 3.5 g/dL (3.4-5.0); Alkaline Phosphatase 109 U/L (46-116); Anion Gap 9 mmol/L (4-12); Aspartate Amino Transferase 23 U/L (15-37); Bilirubin,Total 0.2 mg/dL (0.00-1.00); Blood Urea Nitrogen 7 mg/dL (7-18); CRP 0.6 mg/dL (0.0-0.9); Calcium 8.8 mg/dL (8.5-10.1); Carbon Dioxide 29 mmol/L (21-32); Chloride 104 mmol/L (98-108); Estimated Glomerular Filt Rate > 60; Glucose 131 mg/dL (70-99); Osmolality Calculated 294 mOsm/kg (285-295); Potassium 4.1 mmol/L (3.5-5.1); Sodium 142 mmol/L (136-145); Total Protein 7.2 g/dL (6.4-8.2)
[2024-06-03 16:45] LABS: Erythrocyte Sedimentation Rate 44 mm/hr (0-20)
== END 2024-06-03 15:27 | disposition home or self-care (01) ==
LOC: CHSLAB 15:28
PROVIDERS: PCP Internal Medicine; Visit Provider Internal Medicine Rheumatology
DX: M05.9 Rheumatoid arthritis with rheumatoid factor, unspecified (principal)
CPT/HCPCS: 36415; 80053; 85027; 85652; 86140

== ENCOUNTER 2024-07-21 07:01 | Outpatient (CLI) | payer MEDICARE, SELFPAY ==
--- OUTSIDE RECORDS SUMMARY | 2024-07-21 07:05 | XMS_ITS | Data Portability ---
Author Organization [facility], 800 [facility] ([place]) Address [address] [place] [address] Care Team Providers Care Bilingual Teacher Aide Name Role Phone NICKOLAS PORTER Primary Care Provider [phone] NICKOLAS PORTER Referring Provider [phone] Assessment Encounter Date Assessment Date Assessment LastModified [...] 4. Followup visit in 3 months. nv Not available 10/04/2023 10:03:13 01/01/2024 01/01/2024 IMPRESSION [...] to five months for a recheck. annel [email or web address] Not available 01/02/2024 12:02:42 06/03/2024 06/03/2024 IMPRESSION: 1. Dyspnea on exertion, likely related to underlying COPD. She reports recently she ran out of her metered-dose inhaler from her primary care provider and has not contacted him to resume. 2. Seropositive RA, currently relatively stable on 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 monotherapy. She did not tolerate RINVOQ therapy well. 3. Osteoarthritis. 4. Fibromyalgia syndrome. PLAN: 1. DMARD labs now along with vitamin D level. 2. Continue current 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 and leucovorin dosing. 3. May try thumb splints on the thumb carpometacarpal joints, wear at h.s., off during the day. May do this as needed for flares of her thumb pain. 4. May use acetaminophen up to 1 g p.o. t.i.d. p.r.n. for analgesic relief. 5. DMARD labs again in 4 months. 6. Followup visit in 4 months for recheck. [email or web address] Not available 06/03/2024 13:55:32 Plan of Treatment Reminders Order Date Submit Date Provider Last Modified By Organization Details Last Modified Time Details Appointments Establish ed Patient 15.EST 2024 11:00A M Dr. Homer Jefferson Not available Not available Not available Lab CBC 2023 024 [email or web address] [facility], [address] [place] [address], [id number], 05/07/2024 10:20:13 CMP, serum or plasma 2023 024 [email or web address] [facility], [address] [place] [address], [id number], 04/20/2024 11:01:07 ESR (erythroc yte sedimenta tion rate), blood 2023 024 [email or web address] [facility], [address] [place] [address], [id number], 04/20/2024 11:01:07 C-reactiv e protein, quantitat montse, serum or plasma 2023 024 [facility], [address] [place] [address], [id number], 04/20/2024 11:01:07 CBC 2023 024 [email or web address] [facility], [address] [place] [address], [id number], 04/20/2024 11:01:07 CMP, serum or plasma 2023 024 [email or web address] [facility], [address] [place] [address], [id number], 05/06/2024 09:03:48 ESR (erythroc yte sedimenta tion rate), blood 2023 024 [email or web address] [facility], [address] [place] [address], [id number], 05/06/2024 09:02:23 C-reactiv e protein, quantitat montse, serum or plasma 2023 024 [email or web address] [facility], [address] [place] [address], [address], 05/06/2024 09:03:30 CBC 2023 024 [email or web address] [facility], [address] [place] [address], [address], 10/03/2023 15:30:56 CMP, serum or plasma 2023 024 CASE [facility], [address] [place] [address], [address], 10/13/2023 11:26:43 ESR (erythroc yte sedimenta tion rate), blood 2023 024 [email or web address] [facility], [address] [place] [address], [address], 10/03/2023 15:30:56 unlisted lab - CRP ([facility]) 2023 024 [email or web address] [facility], [address] [place] [address], [address], 10/03/2023 15:30:56 CK (creatine kinase), total, serum 2023 024 [email or web address] [facility], [address] [place] [address], [address], 10/03/2023 15:30:56 HBsAg (hepatiti s B surface Ag), serum 2023 024 [email or web address] [facility], [address] [place] [address], [address], 10/06/2023 14:46:25 hepatitis B core Ab, total, serum 2023 024 [email or web address] [facility], [address] [place] [address], [address], 10/06/2023 14:46:17 hepatitis C Ab, serum 2023 024 [email or web address] [facility], [address] [place] [address], [address], 10/06/2023 14:46:08 tb (M tuberculo sis), ifn-gamma connor, blood 2023 024 [email or web address] [facility], [address] [place] [address], [address], 10/06/2023 14:45:58 vitamin D, 25-hydrox y, total, serum 2023 024 CASE [facility], [address] [place] [address], [address], 10/13/2023 11:26:43 Referral None recorded. Procedures None recorded. Surgeries None recorded. Imaging None recorded. Medication Orders Depo-Medr ol 80 mg/mL suspensio n for injection 2023 024 [id number], [address] [place], [address], 01/02/2024 09:04:06 leucovori n calcium 5 mg tablet 2023 024 [id number], [address] [place], [address], 10/03/2023 15:30:56 Depo-Medr ol 80 mg/mL suspensio n for injection 2023 024 [id number], [address] [place], [address], 10/03/2023 15:30:56 Patient TargetsNo targets recorded. Patient InstructionsNo instructions recorded. Reason for Referral None Reported. Results Created Date Observation Date Name Description Value Unit Range Abnormal Flag Note LastModifiedBy Organization Detail LastModifiedTime 06/16/19 25 05/05/2024 biops y, lung, ct gianna nce (PROC ) No observ ation record ed. BARCODE Not Available 2024 09:13:39 Result Notes None recorded. Problems Name Problem SNOMED Code Status Onset Date Resolution Date Notes Provider Name and Address Organization Details Recorded Time Fibromyalgia 350391970 Active 2023 Homer Jefferson MD [address] [place] [address], [phone], [facility] 4 15:53:58 Seropositive rheumatoid arthritis 856442159 [facility] 14:47:32 Osteoarthritis 404394615 [facility] 14:47:38 Vitamin D deficiency 24406514 Active 2023 Sharyn Young [facility] 15:15:38 Problem Notes None recorded. Procedures Surgical History Date Name Laterality Status Provider Name and Address Organization Details Recorded Time Total hysterectomy completed Not Available Health Note 09/30/2023 14:45:09 Imaging Results Imaging Date Name Status LastModified by Organiz ation Details LastModified Time 05/05/2024 biopsy, lung, ct guidance (PROC) completed BARCODE Information not available 06/16/2024 09:13:39 Procedure Notes None recorded. Medical Equipment None Reported. Allergies No known drug allergies Medications Name Sig Start Date Stop Date Status Note LastModified by Organization Details LastModified Time Prescript ion - New 06/03 completed Mash Filter Operator: DEBI (CASE ZAHIRAI ONED), HOMER (Rheumat ology) , Nishicri ption Form Not Available Not Available Not [...] methotrex ate sodium 2.5 mg tablet TAKE 8 TABLETS BY MOUTH ONCE WEEKLY(O K TO SPLIT DOSE, 4 TABLETS IN AM, 4 TABLETS IN PM OF SAME DAY) active [...] WEEKLY 24 HOURS AFTER METHOTRE XATE DOSE active Not Available Not Available No t Available lovastati n 20 mg tablet active Not [...] No t Available buspirone 15 mg tablet PLEASE SEE ATTACHED FOR DETAILED DIRECTIO NS active Not Available Not Available No t [...] Updated DateTime 4 162.56 cm 26.4 kg/m2 58528.2 2 g 77 /min 97 % 97 % 8 126 mm[Hg] 74 mm[Hg] Sharyn Link [facility] 4 14:42:43 Date Recorded Body height Body mass index (BMI) Body weight Heart rate Oxygen saturation Oxygen saturation in Arterial blood by Pulse oximetry Pain severity - 0-10 verbal numeric rating [Score] - Reported Systolic blood pressure Diastolic blood pressure Provider Name and Address Organization Details Last Updated DateTime 4 162.56 cm 26.8 kg/m2 04802.1 3 g 66 /min 95 % 95 % 8 126 mm[Hg] 82 mm[Hg] Crista Gisselodell [facility] 4 15:05:58 Date Recorded Body height Body mass index (BMI) Body weight Heart rate Oxygen saturation Oxygen saturation in Arterial blood by Pulse oximetry Pain severity - 0-10 verbal numeric rating [Score] - Reported Systolic blood pressure Diastolic blood pressure Provider Name and Address Organization Details Last Updated DateTime 5 162.56 cm 26.6 kg/m2 11349.1 8 g 77 /min 97 % 97 % 4 116 mm[Hg] 60 mm[Hg] Cristaai Chauhanodell [facility] 5 12:10:57 Social History Question Answer Notes LastModified by Organizat ion Details LastModified Time Tobacco Smoking Status Former Smoker Crista Frbrianna [facility] 01/01/2024 15:06:38 Do You Have An [...] Do You Have A Medical Power Of Wool Shearer? Yes [email or web address] Information not available 09/30/2023 What [...] available 09/30/2023 14:45:09 Medical History Condition Response Attention-deficit Hyperactivity Disorder N High Blood Pressure N Thyroid Problems N COPD N Depression Y Anemia N Diabetes N Anxiety Disorder Y Bleeding Disorder N Arthritis Y Hyperlipidemia N Cancer N Stroke N Asthma N Seizures N Heart Disease N Fibromyalgia N Osteoporosis N Kidney Disease N Gynecological HistoryNo gynecological history recorded. Obstetrics History GPAL:G 0 P 0 0 0 0 Past Encounters Encounter ID Performer Location Encounter Start Date Encounter Closed Date Diagnosis/Indication Diagnosis SNOMED-CT Code Diagnosis ICD10 Code Diagnosis Note [id number] Homer Jefferson MD [facility] ([place]) [address] [phone] 10/02/2023 14:27:34 10/06/2023 23:54:32 Seropositive rheumatoid arthritis 784173972 M05.9 Vitamin D deficiency 347 10251 E55.9 Seropositi ve rheumatoid arthritis of multiple joints 0683560778 7133393 M05.89 terminal makeup operator 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 user 9671572700 00 Z79.631 Long-term current use of immunosuppressive drug 432942258 Z79.191 [id number] Homer Jefferson MD [facility] ([place]) [address] [phone] 01/01/2024 14:55:17 01/05/2024 10:39:11 Seropositive rheumatoid arthritis 544505883 M05.9 Osteoarthritis 320305150 M19.90 Fibromyalgia 346311418 M 79.7 Vitamin D deficiency 347 67967 E55.9 Rheumatoid arthritis of multiple joints 790253186 M05.89 Additional diagnosis detail: Other rheumatoid arthritis with rheumatoid factor of multiple sites skilled nursing 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 user 8960784598 00 Z79.631 Drug therapy finding 309 615058 Z79.620 Additional diagnosis detail: On etanercept therapy [id number] Homer Jefferson MD [facility] ([place]) [address] [facility] [place] [address] 06/03/2024 11:52:47 06/07/2024 04:29:17 Seropositive rheumatoid arthritis 876719411 M05.9 Osteoarthritis 189425674 M19.90 Fibromyalgia 570586491 M 79.7 Vitamin D deficiency 347 20047 E55.9 Health Concerns Section Related Observation LastModified by Organization Detai ls LastModified Time None Recorded Concern Status LastModified by Organization Details LastModified Time None Recorded Advance Directives Directive N: Payers Encounter Date Sequence Insurance Name Policy Number Policy Perez Covered Member ID Perez Member ID Guarantor Name 10/02/2023 1 [facility] (MEDICARE REPLACEMENT/A DVANTAGE - HMO) [id number] Hailey Nicole [id number] Hailey Kapoorrett 01/01/2024 1 [facility] (MEDICARE REPLACEMENT/A DVANTAGE - HMO) [id number] Hailey Wut [id number] Hailey Kapoorrett 06/03/2024 1 [facility] (MEDICARE REPLACEMENT/A DVANTAGE - HMO) [id number] Hailey Kapoorrett [id number] Hailey Nicole Notes Date Note Type Note [...] year oldfemalepresenting for care. Homer Jefferson MD [address] [place] [address], [phone], [facility] 10/07/2023 23:12:01 4 text/html Hailey Sifuentes a [...] not had shingles.annel Jefferson MD [address] [place] [address], [phone], [facility] 01/05/2024 09:08:45 5 text/html The patient is a 63-year-old female with seropositive RA, osteoarthritis, fibromyalgia syndrome and vitamin D deficiency, who is here today for a followup visit. She had been taking RINVOQ in conjunction with her low dose 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 for approximately 2 months, but then spontaneously out of the blue developed GI issues and chest tightness. She opted to call [employer] her supplier for her RINVOQ and was advised by their nurse to stop the medication and contact our office. Indeed she did and we recommended that she continue to withhold the RINVOQ. She reports that off the medication her joints have done quite well and her GI issues and chest tightness have virtually resolved. Some mild residual tightness from time to time and dyspnea on exertion. No cough or hemoptysis. She denies any fever or chills. No skin rash, syncopal episodes, aphthous ulcers, inflammatory eye symptoms, Raynaud s symptoms. No wheezing, cough or hemoptysis. She does have a history of previously documented pulmonary nodules and COPD on chest CT. She follows with her PCP for this problem. She has had no dysuria or gross hematuria. No melena or hematochezia, bleeding from the nares or gums. No numbness or tingling. She has no prior history of myocardial infarction or stenting. She admits today she does not exercise regularly. She quit smoking 2-1/2 years ago along with vaping. Lately she has been using a g rounding mat. She purchased this off of [employer] and apparently is plugs into the grounding portion of the outlet in the wall. This apparently draws energy away from the body. She feels as though the grounding mat is helping her arthritis. She uses it on a nightly basis. She has not encountered any shocks or anything abnormal from the mattress cover.neda Sifuentes a 63 year oldfemalepresenting for care. Homer Jefferson MD [address] [place] [address], [phone], [facility] 06/08/2024 13:47:55 OBGyn Episode No OBEpisode recorded.
--- OUTSIDE RECORDS SUMMARY | 2024-07-21 07:05 | XMS_ITS | Clinical Summary ---
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 DOES NOT EXCLUDE THE POSSIBILITY OF EXPOSURE TO HCV. 10/02/2023 3:01 PM CDT us Homer Jefferson MD LABORATORY Final Resul t [facility] [address] [place] [address], [phone] from Last 3 Months or Most Recently Relevant to Health Maintenance Insurance [facility] Care Teams [employer] Weapons Sergeant Relationship Specialty Start Date End Date Josefina Nguyen MD [address] [place] [address] PCP - General INTERNAL MEDICINE 07/27/20
[2024-07-21 07:41] LABS: Add Urine Microscopic? YES; Appearance Urine Clear (Clear); Bilirubin Urine Negative (Negative); Blood Urine Negative (Negative); Color Urine Light Yellow (Yellow); Glucose Urine UA Negative (Negative); Ketones Urine Negative (Negative); Leukocyte Esterase Ur 1+ (Negative); Nitrate Urine Negative (Negative); Protein Urine Negative (Negative); Specific Grav Ur 1.015 (1.010-1.020); Urobilinogen Urine 0.2 mg/dL (0.2-1.0); pH Urine 5.5 (5.0-8.0)
[2024-07-21 07:42] LABS: Basophils Absolute Auto 0.05 K/mm3 (0.00-0.10); Eosinophils Absolute Auto 0.16 K/mm3 (0.02-0.50); Eosinophils Percent Auto 3.2 % (1.0-6.0); Hemoglobin 12.7 g/dL (12.0-15.0); Immature Granulocyte Absolute 0.01 K/mm3 (0.00-0.00); Immature Granulocyte Percent A 0.2 % (0.0-0.0); Lymphocytes Absolute Auto 1.97 K/mm3 (1.10-4.50); Lymphocytes Percent Auto 39.9 % (18.0-42.0); Mean Corpuscular HGB Conc 31.8 g/dL (32-36); Mean Corpuscular Hemoglobin 33.3 pg (27.0-31.0); Mean Platelet Volume 10.5 fl (9.2-11.8); Monocytes Absolute Auto 0.46 K/mm3 (0.10-0.90); Monocytes Percent Auto 9.3 % (2.0-11.0); Neutrophils Absolute Auto 2.29 K/mm3 (1.70-7.20); Neutrophils Percent Auto 46.4 % (50.0-70.0); Platelet Count Result 265 K/mm3 (150-420); Red Blood Count 3.81 M/mm3 (4.20-5.40); Red Cell Distribution Width 14.6 % (11.6-14.4); White Blood Count 4.9 K/mm3 (4.8-10.8)
[2024-07-21 07:45] LABS: Creatinine Urine 66.44 mg/dL (40-278); MALB Creatinine Ratio 19.5 mg/g (0-30); Microalbumin Urine Random < 13.0 mg/L
[2024-07-21 07:56] LABS: Squamous Epithelial Cell Urine None Seen /hpf (Few); Transitional Epi Cells Urine Few /hpf; WBC Urine 0-3 /hpf (0-3)
[2024-07-21 07:57] LABS: Bacteria Urine Trace /hpf; RBC Urine None seen /hpf (0-2)
[2024-07-21 08:34] LABS: Alanine Aminotransferase 31 U/L (14-59); Albumin Level 3.9 g/dL (3.4-5.0); Alkaline Phosphatase 122 U/L (46-116); Anion Gap 7 mmol/L (4-12); Aspartate Amino Transferase 22 U/L (15-37); Bilirubin,Total 0.3 mg/dL (0.00-1.00); Blood Urea Nitrogen 10 mg/dL (7-18); CRP 0.5 mg/dL (0.0-0.9); Carbon Dioxide 28 mmol/L (21-32); Chloride 106 mmol/L (98-108); Cholesterol 177 mg/dL (0-200); Creatine Kinase 93 U/L (26-192); Estimated Glomerular Filt Rate > 60; Free T4 Free Thyroxine 1.05 ng/dL (0.76-1.46); Glucose 104 mg/dL (70-99); HDL Direct 56 mg/dL (40-60); LDL Cholesterol Calculated 102 mg/dL (<130); Osmolality Calculated 291 mOsm/kg (285-295); Potassium 4.1 mmol/L (3.5-5.1); Sodium 141 mmol/L (136-145); Total Protein 7.5 g/dL (6.4-8.2); Triglycerides 93 mg/dL (0-150); Vitamin B12 439 pg/mL (193-986)
[2024-07-21 08:41] LABS: Erythrocyte Sedimentation Rate 20 mm/hr (0-20)
== END 2024-07-21 07:02 | disposition home or self-care (01) ==
LOC: CHSLAB 07:03
PROVIDERS: PCP Internal Medicine; Visit Provider Internal Medicine
DX: M05.9 Rheumatoid arthritis with rheumatoid factor, unspecified (principal); E78.2 Mixed hyperlipidemia; E53.8 Deficiency of other specified B group vitamins; R25.2 Cramp and spasm; K21.00 Gastro-esophageal reflux disease with esophagitis, without bleeding
CPT/HCPCS: 36415; 80053; 80061; 81001; 82043; 82550; 82607; 84439; 84443; 84481; 85025; 85652; 86140

== ENCOUNTER 2024-07-29 16:20 | Outpatient (CLI) | payer MEDICARE, SELFPAY ==
--- OUTSIDE RECORDS SUMMARY | 2024-07-29 16:24 | XMS_ITS | Data Portability ---
Author Organization [facility], [address] [facility] ([place]) Address [address] 4th [place] [address] Care Team Providers Care Soil Conservation Teacher Name Role Phone NICKOLAS PORTER Primary Care Provider [phone] NICKOLAS PORTER Referring Provider Assessment Encounter Date Assessment Date Assessment LastModified [...] to five months for a recheck. annel [email or web address] Not available 01/02/2024 12:02:42 06/03/2024 06/03/2024 IMPRESSION: [...] 024 [email or web address] [facility], [address] [place] [address], [place], [address], 05/07/2024 10:20:13 CMP, serum or plasma 2023 024 [facility], [address] [place] [address], [id number], 04/20/2024 11:01:07 ESR (erythroc yte sedimenta tion rate), blood 2023 024 [email or web address] [facility], [address] [place] [address], [id number], 04/20/2024 11:01:07 C-reactiv e protein, quantitat montse, serum or plasma 2023 024 [email or web address] [facility], [address] [place] [address], [id number], 04/20/2024 11:01:07 CBC 2023 024 [facility], [address] [place] [address], [address], 04/20/2024 11:01:07 CMP, serum or plasma 2023 024 [email or web address] [facility], [address] [place] [address], [address], 05/06/2024 09:03:48 ESR (erythroc yte sedimenta tion rate), blood 2023 024 [email or web address] [facility], [address] [place] [address], [address], 05/06/2024 09:02:23 C-reactiv e protein, quantitat montse, serum or plasma 2023 024 [email or web address] [facility], [address] [place] [address], [address], 05/06/2024 09:03:30 CBC 2023 024 [email or web address] [facility], [address] [place] [address], [address], 10/03/2023 15:30:56 CMP, serum or plasma 2023 024 CASE [facility], [address] [place] [address], [address], 10/13/2023 11:26:43 ESR (erythroc yte sedimenta tion rate), blood 2023 024 [email or web address] [facility], [address] [place] [address], [address], 10/03/2023 15:30:56 unlisted lab - CRP ([facility] only) 2023 024 [email or web address] [facility], [address] [place] [address], [address], 10/03/2023 15:30:56 CK (creatine kinase), total, serum 2023 024 [email or web address] [facility], [address] [place] [address], [address], 10/03/2023 15:30:56 HBsAg (hepatiti s B surface Ag), serum 2023 024 [email or web address] [facility], [address] [place] [address], [address], 10/06/2023 14:46:25 hepatitis B core Ab, total, serum 2023 024 [email or web address] [facility], [address] [place] [address], [address], 10/06/2023 14:46:17 hepatitis C Ab, serum 2023 024 [email or web address] [facility], [address] [place] [address], [address], 10/06/2023 14:46:08 tb (M tuberculo sis), ifn-gamma connor, blood 2023 024 [email or web address] [facility], [address] [place] [address], [address], 10/06/2023 14:45:58 vitamin D, 25-hydrox y, total, serum 2023 024 CASE [facility], [facility] [address], [address], 10/13/2023 11:26:43 Referral None recorded. Procedures None recorded. Surgeries None recorded. Imaging None recorded. Medication Orders Depo-Medr ol 80 mg/mL suspensio n for injection 2023 024 [id number], [address] [place], [address], 01/02/2024 09:04:06 leucovori n calcium 5 mg tablet 2023 024 [id number], [address] [place], [address], 10/03/2023 15:30:56 Depo-Medr ol 80 mg/mL suspensio n for injection 2023 024 [id number], [address] [place], [address], 10/03/2023 15:30:56 Patient TargetsNo targets recorded. Patient InstructionsNo instructions recorded. Reason for Referral None Reported. Results Created Date Observation Date Name Description Value Unit Range Abnormal Flag Note LastModifiedBy Organization Detail LastModifiedTime 06/16/1905/05/2024 biops y, lung, ct gianna nce (PROC ) No observ ation record ed. BARCODE Not Available 2024 09:13:39 Result Notes None recorded. Problems Name Problem SNOMED Code Status Onset Date Resolution Date Notes Provider Name and Address Organization Details Recorded Time Fibromyalgia 797027062 Active 2023 Homer Jefferson MD [address] [place] [address], [phone] [place] [address] 4 15:53:58 Seropositive rheumatoid arthritis 207103452 Active 2023 Sharyn vaughn, [facility] 4 14:47:32 Osteoarthritis 648705697 Active 2023 Sharyn vaughn, [facility] 4 14:47:38 Vitamin D deficiency 49689368 Active 2023 Sharyn vaughn, [facility] 4 15:15:38 Problem Notes None recorded. Procedures [...] Time Prescript ion - New 06/03 completed Gauntlet Pairer: DEBI (CASE RODRIGESI ONED), HOMER (Rheumat ology) , sPrescri ption Form [...] TABLET BY MOUTH EVERY DAY AT BEDTIME ORALLY ONCE A DAY active Not Available Not Available No t Available prednison e 5 mg tablet 4 [...] 80 mg/mL suspensio n for injection INJECT 120 MG INTRA-MU SCULARLY 2024 active Not Available Not Available Not [...] Updated DateTime 4 162.56 cm 26.4 kg/m2 02635.2 2 g 77 /min 97 % 97 % 8 126 mm[Hg] 74 mm[Hg] Sharyn Link [facility] 4 14:42:43 Date Recorded Body height Body mass index (BMI) Body weight Heart rate Oxygen saturation Oxygen saturation in Arterial blood by Pulse oximetry Pain severity - 0-10 verbal numeric rating [Score] - Reported Systolic blood pressure Diastolic blood pressure Provider Name and Address Organization Details Last Updated DateTime 4 162.56 cm 26.8 kg/m2 42421.1 3 g 66 /min 95 % 95 % 8 126 mm[Hg] 82 mm[Hg] Crista Hurley [facility] 4 15:05:58 Date Recorded Body height Body mass index (BMI) Body weight Heart rate Oxygen saturation Oxygen saturation in Arterial blood by Pulse oximetry Pain severity - 0-10 verbal numeric rating [Score] - Reported Systolic blood pressure Diastolic blood pressure Provider Name and Address Organization Details Last Updated DateTime 5 162.56 cm 26.6 kg/m2 49636.1 8 g 77 /min 97 % 97 % 4 116 mm[Hg] 60 mm[Hg] Crista Hurley [facility] 5 12:10:57 Social History Question Answer Notes LastModified by Organizat ion Details LastModified Time Tobacco Smoking Status Former Smoker Crista Hurley [facility] 01/01/2024 15:06:38 Do You Have An [...] Do You Have A Medical Power Of Design Drafter? Yes [email or web address] Information not available 09/30/2023 What [...] SNOMED-CT Code Diagnosis ICD10 Code Diagnosis Note [id number] Homer Jefferson MD [facility] ([place]) [address] [place] [address] 10/02/2023 14:27:34 10/06/2023 23:54:32 Seropositive rheumatoid arthritis 963905479 M05.9 Vitamin D deficiency 347 30479 E55.9 Seropositi ve rheumatoid arthritis of multiple joints 6219206174 9230738 M05.89 halfway 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 user [id number] 00 Z79.631 Long-term current use of immunosuppressive drug 119910604 Z79.652 [id number] Homer Jefferson MD [facility] ([place]) [address] [place] [place] [address] 01/01/2024 14:55:17 01/05/2024 10:39:11 Seropositive rheumatoid arthritis 613896257 M05.9 Osteoarthritis 732823548 M19.90 Fibromyalgia 758884398 M 79.7 Vitamin D deficiency 347 57837 E55.9 Rheumatoid arthritis of multiple joints 761214417 M05.89 Additional diagnosis detail: Other rheumatoid arthritis with rheumatoid factor of multiple sites halfway 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 user 7121211875 00 Z79.631 Drug therapy finding 309 771194 Z79.620 Additional diagnosis detail: On etanercept therapy [id number] Homer Jefferson MD [facility] ([place]) [address] [place] [address] 06/03/2024 11:52:47 06/07/2024 04:29:17 Seropositive rheumatoid arthritis 581433765 M05.9 Osteoarthritis 063377633 M19.90 Fibromyalgia 812314542 M 79.7 Vitamin D deficiency 347 63448 E55.9 Health Concerns Section Related Observation LastModified by Organization Detai ls LastModified Time None Recorded Concern Status LastModified by Organization Details LastModified Time None Recorded Advance Directives Directive N: Payers Encounter Date Sequence Insurance Name Policy Number Policy Perez Covered Member ID Perez Member ID Guarantor Name 10/02/2023 1 [facility] (MEDICARE REPLACEMENT/A DVANTAGE - HMO) [id number] Hailey Kapoorrett [id number] Hailey Matias KapoorCorey 01/01/2024 1 [facility] (MEDICARE REPLACEMENT/A DVANTAGE - HMO) [id number] Hailey R Corey [id number] Hailey R Corey 06/03/2024 1 [facility] (MEDICARE REPLACEMENT/A DVANTAGE - HMO) [id number] Hailey R Corey [id number] Hailey Wut Notes Date Note Type Note Provider Name [...] to turn and toss back and forth.nv Haileydionne Kapoorsurya a 62 year oldfemalepresenting for care. Homer Jefferson MD [facility], [address], [facility] 10/07/2023 23:12:01 4 text/html Hailey Sifuentes [...] She has not had shingles.annel Jefferson MD [facility] [place] [address], [phone], [facility] 01/05/2024 09:08:45 5 text/html The patient is [...] vaping. Lately she has been using a grounding mat. She purchased this off of [employer] and apparently is plugs into the grounding portion of the outlet in the wall. This apparently draws energy away from the body. She feels as though the grounding mat is helping her arthritis. She uses it on a nightly basis. She has not encountered any shocks or anything abnormal from the mattress cover.neda Wuparth a 63 year oldfemalepresenting for care. Homer Jefferson MD [address] [place] [address], [phone], [facility] 06/08/2024 13:47:55 OBGyn Episode No OBEpisode recorded.
--- OUTSIDE RECORDS SUMMARY | 2024-07-29 16:24 | XMS_ITS | Clinical Summary ---
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 DOES NOT EXCLUDE THE POSSIBILITY OF EXPOSURE TO HCV. 10/02/2023 3:01 PM CDT us Homer Jefferson MD LABORATORY Final Resul t [facility] [address] [place] [address], [phone] from Last 3 Months or Most Recently Relevant to Health Maintenance Insurance [facility] Care Teams Agile Java Developer Relationship Specialty Start Date End Date Josefina Nguyen MD [address] [place] [address] PCP - General INTERNAL MEDICINE 07/27/20
[2024-07-29 16:54] LABS: CRP 0.5 mg/dL (0.0-0.9)
[2024-08-02 06:14] LABS: S cerevisiae Ab (IgA) 18.5 U (<=20.0); S cerevisiae Ab (IgG) 17.9 U (<=20.0)
== END 2024-07-29 16:21 | disposition home or self-care (01) ==
LOC: CHSLAB 16:22
PROVIDERS: PCP Internal Medicine; Visit Provider Internal Medicine
DX: R19.7 Diarrhea, unspecified (principal)
CPT/HCPCS: 36415; 82784; 83516; 86036; 86140; 86671

== ENCOUNTER 2024-07-30 09:59 | Outpatient (CLI) | payer MEDICARE, SELFPAY ==
--- OUTSIDE RECORDS SUMMARY | 2024-07-30 10:36 | XMS_ITS | Clinical Summary ---
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 DOES NOT EXCLUDE THE POSSIBILITY OF EXPOSURE TO HCV. 10/02/2023 3:01 PM CDT us Homer Jefferson MD LABORATORY Final Resul t [facility] [address] [place] [address], [phone] from Last 3 Months or Most Recently Relevant to Health Maintenance Insurance [facility] Care Teams Bait Maker Relationship Specialty Start Date End Date Josefina Nguyen MD [address] [place] [address] PCP - General INTERNAL MEDICINE 07/27/20
== END 2024-07-30 10:00 | disposition home or self-care (01) ==
PROVIDERS: PCP Internal Medicine; Visit Provider Internal Medicine
DX: R19.7 Diarrhea, unspecified (principal)
CPT/HCPCS: 82653; 82705; 83993

== ENCOUNTER 2024-08-09 10:49 | Outpatient (CLI) | payer MEDICARE, SELFPAY ==
--- NOTE | ~2024-08-09 | DEXA_ITS ---
Bone Density Report Name: SHANICE CAMPBELL Age: 63 Sex: Female Ethnicity: White Date of : 1960 Indication: postmenopausal osteoporosis; monitoring treatment; asthma or emphysema; hysterectomy; rheumatoid arthritis; secondary osteoporosis; Referring Provider: Josefina Nguyen Study: Bone densitometry was performed. Exam Date: August 09, 2024 Accession number: [id number] Bone Density: Region BMD T-score Z-score Classification AP Spine(L1-L4) 0.767 -2.5 -0.9 Osteoporosis Femoral Neck (Left) 0.591 -2.3 -0.9 Osteopenia Total Hip (Left) 0.742 -1.6 -0.5 Osteopenia Femoral Neck (Right) 0.630 -2.0 -0.6 Osteopenia Total Hip (Right) 0.752 -1.6 -0.5 Osteopenia Femoral Neck Mean 0.611 -2.1 -0.7 Osteopenia Total Hip Mean 0.747 -1.6 -0.5 Osteopenia World Health Organization criteria for BMD impression classify patients as: Normal (T-score at or above -1.0), Osteopenia (T-score between -1.0 and -2.5), or Osteoporosis (T-score at or below -2.5). 10-year Fracture Risk: FRAX not reported because: Some T-score for Spine Total or Hip Total or Femoral Neck at or below -2.5 Treated for osteoporosis Previous Exams: Region Exam Age BMD T-score BMD Change BMD Change Date g/cm2 vs Baseline vs Previous AP Spine (L1-L4) 08/09/2024 63 0.767 -2.5 -0.045 (-5.6%) 0.025 (3.3%)* 02/27/2023 62 0.743 -2.8 -0.070 (-8.6%) -0.070 (-8.6%) 02/16/2021 60 0.812 -2.1 Total Hip(Left) 08/09/2024 63 0.742 -1.6 -0.028 (-3.6%) 0.021 (2.9%) 02/27/2023 62 0.721 -1.8 -0.049 (-6.4%) -0.049 (-6.4%) 02/16/2021 60 0.770 -1.4 Total Hip(Right) 08/09/2024 63 0.752 -1.6 -0.015 (-2.0%) 0.030 (4.2%)* 02/27/2023 62 0.722 -1.8 -0.046 (-6.0%) -0.046 (-6.0%) 02/16/2021 60 0.767 -1.4 *Denotes significance at 95% confidence level, LSC for AP Spine = 0.022 g/cm2, LSC for Total Hip = 0.027 g/cm2 Clinical Information Provided by Patient: Has rheumatoid arthritis Has secondary osteoporosis Is being treated for osteoporosis Has used the following medications: Calcium Has the following medical conditions: Asthma or Emphysema, Hysterectomy Patient maximum height was 64.0 Menopause Age: 31 No regular weight bearing exercise Drinks caffeinated beverages Onset of menses at age 14 Number of children 1 Impression: The patient has osteoporosis, based on the Total Spine T-score. No significant bone loss was observed. Discussion: PATIENT UNDER TREATMENT WITH NO SIGNIFICANT BMD LOSS SINCE LAST EXAM. In an untreated patient, BMD typically declines with age. A lack of decline or gain is usually a sign that treatment is efficacious and fracture risk is reduced. It is important to ask patients whether they are taking their medications and to encourage continued and appropriate compliance with their osteoporosis therapies to reduce fracture risk. It is also important to review their risk factors and encourage appropriate calcium and vitamin D intakes, exercise, fall prevention and other lifestyle measures. Follow-Up: Consider a repeat BMD and Vertebral Fracture Assessment (VFA) exam in 2 years or sooner if medically necessary, to reassess this patient's status. Reported by: DARELL on 08/09/2024 11:20:00 AM. Reviewed, dictated and finalized at location A.
--- OUTSIDE RECORDS SUMMARY | 2024-08-09 12:37 | XMS_ITS | Clinical Summary ---
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 DOES NOT EXCLUDE THE POSSIBILITY OF EXPOSURE TO HCV. 10/02/2023 3:01 PM CDT us Homer Jefferson MD LABORATORY Final Resul t [facility] [address] [place] [address], [phone] from Last 3 Months or Most Recently Relevant to Health Maintenance Insurance [facility] Care Teams Rn First Assistant Relationship Specialty Start Date End Date Josefina Nguyen MD [address] [place] [phone] PCP - General INTERNAL MEDICINE 07/27/20
== END 2024-08-09 10:50 | disposition home or self-care (01) ==
LOC: CHSIMG 10:50
PROVIDERS: PCP Internal Medicine; Visit Provider Internal Medicine
DX: Z78.0 Asymptomatic menopausal state (principal); M81.0 Age-related osteoporosis without current pathological fracture; M85.89 Other specified disorders of bone density and structure, multiple sites
CPT/HCPCS: 77080

== ENCOUNTER 2024-08-13 07:47 | Outpatient (CLI) | payer MEDICARE, SELFPAY ==
--- NOTE | ~2024-08-13 | CT_ITS ---
CT of the Abdomen and Pelvis: Indication: Chronic diarrhea, pancreatic insufficiency Technique: 2.5 mm axial scans were obtained through the abdomen and pelvis prior to and following in travenous administration of 100 cc of Omnipaque 350. Dose reduction technique was used on this scan b y utilizing automated exposure control and iterative reconstruction technique. The dose-length produc t (DLP) was 838.48 mGy-cm. Findings: Scans through the lung bases are unremarkable. Diffuse hepatic steatosis noted. The spleen, pancreas, gallbladder, adrenals and kidneys are within n ormal limits. There are atherosclerotic calcifications of the aorta. No lymphadenopathy. No bowel obstruction or bowel wall thickening. There is no evidence to suggest acute appendicitis. Images through the pelvis were performed. Urinary bladder unremarkable. No pelvic mass seen. No ascit es. Impression: No acute abnormality. Diffuse hepatic steatosis. Reviewed, dictated and finalized at location . Impression: No acute abnormality. Diffuse hepatic steatosis.
--- OUTSIDE RECORDS SUMMARY | 2024-08-13 07:52 | XMS_ITS | Data Portability ---
Author Organization [facility], 800 [facility] Neurology ([place]) Address [address] 4th [place] [address] Care Team Providers Care Dethistler Operator Name Role Phone NICKOLAS PORTER Primary Care Provider NICKOLAS PORTER Referring Provider [phone] Assessment Encounter Date Assessment Date Assessment LastModified [...] to five months for a recheck. annel [email or web address] Not available 01/02/2024 12:02:42 06/03/2024 06/03/2024 IMPRESSION: [...] 024 [email or web address] [facility], [address] [place] [address], [address], 05/07/2024 10:20:13 CMP, serum or plasma 2023 024 [email or web address] [facility], [address] [place] [address], [address], 04/20/2024 11:01:07 ESR (erythroc yte sedimenta tion rate), blood 2023 024 [facility], [address] [place] [address], 00141, 04/20/2024 11:01:07 C-reactiv e protein, quantitat montse, serum or plasma 2023 024 [email or web address] [facility], [address] [place] [address], 92[address], 04/20/2024 11:01:07 CBC 2023 024 [email or web address] [facility], [address] [place] [address], 30782, 04/20/2024 11:01:07 CMP, serum or plasma 2023 024 [email or web address] [facility], [address] [place] [address], 39070, 05/06/2024 09:03:48 ESR (erythroc yte sedimenta tion rate), blood 2023 024 [email or web address] [facility], [address] [place] [address], 75[address], 05/06/2024 09:02:23 C-reactiv e protein, quantitat montse, serum or plasma 2023 024 [email or web address] [facility], [address] [place] [address], 6[address], 05/06/2024 09:03:30 CBC 2023 024 [email or web address] [facility], [address] [place] [address], 5[address], 10/03/2023 15:30:56 CMP, serum or plasma 2023 024 CASE [facility], [address] [place] [address], 947[address], 10/13/2023 11:26:43 ESR (erythroc yte sedimenta tion rate), blood 2023 024 [email or web address] [facility], [address] [place] [address], 95686, 10/03/2023 15:30:56 unlisted lab - CRP ([facility]) 2023 024 [email or web address] [facility], [address] [place] [address], 118[address], 10/03/2023 15:30:56 CK (creatine kinase), total, serum 2023 024 [email or web address] [facility], [address] [place] [address], 07508, 10/03/2023 15:30:56 HBsAg (hepatiti s B surface Ag), serum 2023 024 [email or web address] [facility], [address] [place] [address], 34145, 10/06/2023 14:46:25 hepatitis B core Ab, total, serum 2023 024 [email or web address] [facility], [address] [place] [address], 01128, 10/06/2023 14:46:17 hepatitis C Ab, serum 2023 024 [email or web address] [facility], [address] [place] [address], 36051, 10/06/2023 14:46:08 tb (M tuberculo sis), ifn-gamma connor, blood 2023 024 [email or web address] [facility], [address] [place] [address], 05349, 10/06/2023 14:45:58 vitamin D, 25-hydrox y, total, serum 2023 024 CASE [facility], [address] [place] [address], 285[address], 10/13/2023 11:26:43 Referral None recorded. Procedures None recorded. Surgeries None recorded. Imaging None recorded. Medication Orders Depo-Medr ol 80 mg/mL suspensio n for injection 2024 025 [facility] #[id number], [address] [place], [address], 07/29/2024 22:57:12 Depo-Medr ol 80 mg/mL suspensio n for injection 2023 024 [facility] #[id number], [address] [place], [address], 01/02/2024 09:04:06 leucovori n calcium 5 mg tablet 2023 024 [id number] [address] [place], [address], 10/03/2023 15:30:56 Depo-Medr ol 80 mg/mL suspensio n for injection 2023 024 [facility] #[id number], [address] [place], [address], 10/03/2023 15:30:56 Patient TargetsNo targets recorded. Patient [...] and Address Organization Details Recorded Time Fibromyalgia 654379420 Active 2023 Homer Jefferson MD [address] [place], [address], [facility] 15:53:58 Seropositive rheumatoid arthritis 179613355 [facility] 14:47:32 Osteoarthritis 190461675 Active 2023 [facility] 14:47:38 Vitamin D deficiency 23973139 Active 2023 [facility] 15:15:38 Problem Notes None [...] Time Prescript ion - New 06/03 completed Wood Getter: DEBI (CASE ZAHIRAI ONED), HOMER (Rheumat ology) , sPrescri ption [...] Updated DateTime 4 162.56 cm 26.4 kg/m2 79653.2 2 g 77 /min 97 % 97 % 8 126 mm[Hg] 74 mm[Hg] Sharyn Link [facility] 4 14:42:43 Date Recorded Body height Body mass index (BMI) Body weight Heart rate Oxygen saturation Oxygen saturation in Arterial blood by Pulse oximetry Pain severity - 0-10 verbal numeric rating [Score] - Reported Systolic blood pressure Diastolic blood pressure Provider Name and Address Organization Details Last Updated DateTime 4 162.56 cm 26.8 kg/m2 24569.1 3 g 66 /min 95 % 95 % 8 126 mm[Hg] 82 mm[Hg] Crista Hurley [facility] 4 15:05:58 Date Recorded Body height Body mass index (BMI) Body weight Heart rate Oxygen saturation Oxygen saturation in Arterial blood by Pulse oximetry Pain severity - 0-10 verbal numeric rating [Score] - Reported Systolic blood pressure Diastolic blood pressure Provider Name and Address Organization Details Last Updated DateTime 5 162.56 cm 26.6 kg/m2 72977.1 8 g 77 /min 97 % 97 % 4 116 mm[Hg] 60 mm[Hg] Crista Hurley [facility] 5 12:10:57 Social History Question Answer Notes LastModified by Organizat ion Details LastModified Time Tobacco Smoking Status Former Smoker Crista Hurley [facility] 01/01/2024 15:06:38 Do You Have An [...] Do You Have A Medical Power Of Manager Primary? 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 2431838480 00 Z79.631 Long-term current use of immunosuppressive drug 964076927 Z79.945 [id number] Homer Jefferson MD [facility]gy ([place]) [address] [place] [address] 01/01/2024 14:55:17 01/05/2024 10:39:11 Seropositive rheumatoid arthritis 872850873 M05.9 Osteoarthritis 940287852 M19.90 Fibromyalgia 050105667 M 79.7 Vitamin D deficiency 347 40957 E55.9 Rheumatoid arthritis of multiple joints 291491246 M05.89 Additional diagnosis detail: Other rheumatoid arthritis with rheumatoid factor of multiple sites group home 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 user 7127688024 00 Z79.631 Drug therapy finding 309 236223 Z79.620 Additional diagnosis detail: On etanercept therapy [id number] Homer Jefferson MD [facility]gy [place]) [address] [place] [address] 06/03/2024 11:52:47 06/07/2024 04:29:17 Seropositive rheumatoid arthritis 572790851 M05.9 Osteoarthritis 816034313 M19.90 Fibromyalgia 952307382 M 79.7 Vitamin D deficiency 347 30391 E55.9 [id number] Homer Jefferson MD [facility] [place] [place]) [address] [place] [address] 07/29/2024 12:09:44 08/03/2024 12:08:13 Seropositive rheumatoid arthritis 168455724 M05.9 Health Concerns Section Related Observation LastModified by Organization Detai ls LastModified Time None Recorded Concern Status LastModified by Organization Details LastModified Time None Recorded Advance Directives Directive N: Payers Encounter Date Sequence Insurance Name Policy Number Policy Perez Covered Member ID Perez Member ID Guarantor Name 10/02/2023 1 [employer] [facility] (MEDICARE REPLACEMENT/A DVANTAGE - HMO) [id number] Hailey Nicole [id number] Hailey Nicole 01/01/2024 1 [employer] [facility] [facility] (MEDICARE REPLACEMENT/A DVANTAGE - HMO) [id number] Hailey Nicole [id number] Hailey Nicole 06/03/2024 1 [employer] [facility] (MEDICARE REPLACEMENT/A DVANTAGE - HMO) [id number] Hailey Nicole [id number] Hailey Nicole 07/29/2024 1 [employer] (MEDICARE REPLACEMENT/A DVANTAGE - HMO) [id number] Hailey Nicole [id number] Hailey Nicole Notes Date Note Type Note [...] for care. Homer Jefferson MD [address] [place] [address], [address], [facility] 10/07/2023 23:12:01 4 text/html Haileydionne Kapoorsurya a 63 year oldfemalepresenting for care.A 63-year-old [...] She has not had shingles.annel Jefferson MD [facility], [address], [facility] 01/05/2024 09:08:45 5 text/html The patient [...] rounding mat. She purchased this off of [employer] and apparently is plugs into the grounding [...] for care. Homer Jefferson MD [address] [facility], [place], [address], [facility] 06/08/2024 13:47:55 OBGyn Episode No OBEpisode recorded.
--- OUTSIDE RECORDS SUMMARY | 2024-08-13 07:52 | XMS_ITS | Clinical Summary ---
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 DOES NOT EXCLUDE THE POSSIBILITY OF EXPOSURE TO HCV. 10/02/2023 3:01 PM CDT us Homer Jefferson MD LABORATORY Final Resul t [facility] [address] [place] [address], [phone] from Last 3 Months or Most Recently Relevant to Health Maintenance Insurance [employer] Care Teams Operating Systems Specialist Relationship Specialty Start Date End Date Josefina Nguyen MD [address] [place] [phone] PCP - General INTERNAL MEDICINE 07/27/20
== END 2024-08-13 07:48 | disposition home or self-care (01) ==
LOC: CHSIMG 07:50
PROVIDERS: PCP Internal Medicine; Visit Provider Internal Medicine
DX: R19.7 Diarrhea, unspecified (principal); K86.89 Other specified diseases of pancreas; K76.0 Fatty (change of) liver, not elsewhere classified
CPT/HCPCS: 74178; Q9967

== ENCOUNTER 2024-09-03 08:55 | Outpatient (CLI) | payer MEDICARE, SELFPAY ==
--- OUTSIDE RECORDS SUMMARY | 2024-09-03 09:07 | XMS_ITS | Data Portability ---
Author Organization [facility], 800 [facility] Neurology ([place]) Address [address] 4th [place] [address] Care Team Providers Care Refuge Worker Name Role Phone NICKOLAS PORTER Primary Care Provider NICKOLAS PORTER Referring Provider Assessment Encounter Date [...] to five months for a recheck. annel [email or web address] Not available 01/02/2024 12:02:42 06/03/2024 06/03/2024 IMPRESSION: [...] 024 [email or web address] [facility], [address] [place] [address], [address], 05/07/2024 10:20:13 CMP, serum or plasma 2023 024 [facility], [address] [place] [address], [address], 04/20/2024 11:01:07 ESR (erythroc yte sedimenta tion rate), blood 2023 024 [facility], [address] [place] [address], [address], 04/20/2024 11:01:07 C-reactiv e protein, quantitat montse, serum or plasma 2023 024 [email or web address] [facility], [address] [place] [address], [address], 04/20/2024 11:01:07 CBC 2023 024 [email or web address] [facility], [address] [place] [address], [address], 04/20/2024 11:01:07 CMP, serum or plasma 2023 024 [email or web address] [facility], [address] [place] [address], [address], 05/06/2024 09:03:48 ESR (erythroc yte sedimenta tion rate), blood 2023 024 [email or web address] [facility], [address] [place] [address], [address], 05/06/2024 09:02:23 C-reactiv e protein, quantitat montse, serum or plasma 2023 024 [email or web address] [facility], [address] [place] [address], [address], 05/06/2024 09:03:30 CBC 2023 024 [email or web address] [facility], [address] [place] [address], [address], 10/03/2023 15:30:56 CMP, serum or plasma 2023 024 CASE [facility], [address] [place] [address], [address], 10/13/2023 11:26:43 ESR (erythroc yte sedimenta tion rate), blood 2023 024 [email or web address] [facility], [address] [place] [address], [address], 10/03/2023 15:30:56 unlisted lab - CRP ([facility] only) 2023 024 [email or web address] [facility], [address] [place] [address], [address], 10/03/2023 15:30:56 CK (creatine kinase), total, serum 2023 024 [email or web address] [facility], [address] [place] [address], [address], 10/03/2023 15:30:56 HBsAg (hepatiti s B surface Ag), serum 2023 024 [email or web address] [facility], [address] [place] [address], [address], 10/06/2023 14:46:25 hepatitis B core Ab, total, serum 2023 024 [email or web address] [facility], [address] [place] [address], [address], 10/06/2023 14:46:17 hepatitis C Ab, serum 2023 024 [email or web address] [facility], [address] [place] [address], [address], 10/06/2023 14:46:08 tb (M tuberculo sis), ifn-gamma connor, blood 2023 024 [email or web address] [facility], [address] [place] [address], [address], 10/06/2023 14:45:58 vitamin D, 25-hydrox y, total, serum 2023 024 CASE [facility], [address] [place] [address], [address], 10/13/2023 11:26:43 Referral None recorded. Procedures None recorded. Surgeries None recorded. Imaging None recorded. Medication Orders Depo-Medr ol 80 mg/mL suspensio n for injection 2024 025 [facility] #[id number], [address] [place], [address], 07/29/2024 22:57:12 Depo-Medr ol 80 mg/mL suspensio n for injection 2023 024 [facility] #[id number], [address] [place], [address], 01/02/2024 09:04:06 leucovori n calcium 5 mg tablet 2023 024 [id number] [address] [place], [address], 10/03/2023 15:30:56 Depo-Medr ol 80 mg/mL suspensio n for injection 2023 024 [facility] #[id number], [address] [place], [address], 10/03/2023 15:30:56 Patient TargetsNo targets recorded. Patient [...] and Address Organization Details Recorded Time Fibromyalgia 875018291 Active 2023 Homer Jefferson MD [address] [place], [address], [facility] 15:53:58 Seropositive rheumatoid arthritis 538301601 Active 2023 [facility] 4 14:47:32 Osteoarthritis 280848116 Active 2023 [facility] 4 14:47:38 Vitamin D deficiency 23046330 Active 2023 [facility] 4 15:15:38 Problem Notes None recorded. Procedures [...] Time Prescript ion - New 06/03 completed Barrel Raiser Helper: DEBI (CASE ZAHIRAI ONED), HOMER (Rheumat ology) [...] Updated DateTime 4 162.56 cm 26.4 kg/m2 05538.2 2 g 77 /min 97 % 97 [...] Updated DateTime 4 162.56 cm 26.8 kg/m2 48267.1 3 g 66 /min 95 % 95 % 8 126 mm[Hg] 82 mm[Hg] Crista Hulrey [facility] 4 15:05:58 Date Recorded Body height Body mass index (BMI) Body weight Heart rate Oxygen saturation Oxygen saturation in Arterial blood by Pulse oximetry Pain severity - 0-10 verbal numeric rating [Score] - Reported Systolic blood pressure Diastolic blood pressure Provider Name and Address Organization Details Last Updated DateTime 5 162.56 cm 26.6 kg/m2 12233.1 8 g 77 /min 97 % 97 % 4 116 mm[Hg] 60 mm[Hg] Crista Hurley [facility] 5 12:10:57 Social History Question Answer Notes LastModified by Organizat ion Details LastModified Time Tobacco Smoking Status Former Smoker Crista Hurley [facility] 01/01/2024 15:06:38 Do You Have An Advance Directive? No [email or web address] Information not available 09/30/2023 What Is Your Level Of Caffeine Consumption? Moderate [email or web address] Information not available 09/30/2023 How Many Times Per Week Do You Exercise? Less Than 1 Time Per Week [email or web address] Information not available 09/30/2023 When Did You Quit Smoking? 2 Years [email or web address] Information not available 09/30/2023 Do You Have A Medical Power Of Paginator? Yes [email or web address] Information not available 09/30/2023 What Was The Date Of Your Most Recent Tobacco Screening? 10/02/2023 [email or web address] Information not available 09/30/2023 What Is Your Relationship Status? Single [email or web address] Information not available 09/30/2023 Sex: Unknown Functional Status Question Answer Note LastModified by Organizat ion Details LastModified Time Do you use any illicit or recreational drugs? No [email or web address] Information not available 09/30/2023 What is your level of alcohol consumption? None [email or web address] Information not available 09/30/2023 Are you currently employed? No [email or web address] Information not available 09/30/2023 What is your occupation? Retired [email or web address] Information not available 09/30/2023 What is your exercise level? None [email or web address] Information not available 09/30/2023 Mental Status None recorded. Family History Relationship Description Onset Age of this Age Resolved Age Notes LastModified by Organization Details LastModified Time Father Arthritis [email or web address] Not available 09/30/2023 14:45:09 Medical History Condition Response High Blood Pressure N COPD N Depression Y Anxiety Disorder Y Arthritis Y Cancer N Stroke N Fibromyalgia N Kidney Disease N Bleeding Disorder N Asthma N Seizures N Attention-deficit Hyperactivity Disorder N Thyroid Problems N Anemia N Diabetes N Hyperlipidemia N Heart Disease N Osteoporosis N Gynecological HistoryNo gynecological history recorded. 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 5013796205 00 Z79.631 Long-term current use of immunosuppressive drug 669933056 Z79.314 [id number] Homer Jefferson MD [facility] [place] [place]) [address] [place] [address] 01/01/2024 14:55:17 01/05/2024 10:39:11 Seropositive rheumatoid arthritis 247989301 M05.9 Osteoarthritis 497663956 M19.90 Fibromyalgia 950687230 M 79.7 Vitamin D deficiency 347 94720 E55.9 Rheumatoid arthritis of multiple joints 112809147 M05.89 Additional diagnosis detail: Other rheumatoid arthritis with rheumatoid factor of multiple sites halfway 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 user 6683972736 00 Z79.631 Drug therapy finding 309 317926 Z79.620 Additional diagnosis detail: On etanercept therapy [id number] Homer Jefferson MD [facility] [place] [place]) [address] [place] [address] 06/03/2024 11:52:47 06/07/2024 04:29:17 Seropositive rheumatoid arthritis 384479301 M05.9 Osteoarthritis 415674513 M19.90 Fibromyalgia 959948591 M 79.7 Vitamin D deficiency 347 50000 E55.9 [id number] Homer Jefferson MD [facility] [place] [place]) [address] [place] [address] 07/29/2024 12:09:44 08/03/2024 12:08:13 Seropositive rheumatoid arthritis 797796948 M05.9 Health Concerns Section Related Observation LastModified by Organization Detai ls LastModified Time None Recorded Concern Status LastModified by Organization Details LastModified Time None Recorded Advance Directives Directive N: Payers Insurance Date Sequence Insurance Name Policy Number Policy Perez Covered Member ID Perez Member ID Guarantor Name 08/03/2024 1 [facility] (MEDICARE REPLACEMENT/A DVANTAGE - HMO) [id number] Hailey Nicole [id number] Hailey Nicole 10/02/2023 1 [place] [id number] Anthony Nicole [id number] Hailey Nicole Notes Date Note Type Note Provider Name and Address Organization Details Recorded Time 06/13/202 4 text/html The patient is a 62-year-old [...] year oldfemalepresenting for care. Homer Jefferson MD [address] [place] [address], [phone], [facility] 10/07/2023 23:12:01 4 text/html Hailey Sifuentes [...] She has not had shingles.annel Jefferson MD [facility], [address], [facility] 01/05/2024 09:08:45 5 text/html The patient [...] grounding mat. She purchased this off of [employer] and apparently is plugs into the grounding [...] for care. Homer Jefferson MD [address] [place] [address], [address], [facility] 06/08/2024 13:47:55 OBGyn Episode No OBEpisode recorded.
--- OUTSIDE RECORDS SUMMARY | 2024-09-03 09:07 | XMS_ITS | Clinical Summary ---
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 DOES NOT EXCLUDE THE POSSIBILITY OF EXPOSURE TO HCV. 10/02/2023 3:01 PM CDT us Homer Jefferson MD LABORATORY Final Resul t [facility] [address] [place] [address], [phone] from Last 3 Months or Most Recently Relevant to Health Maintenance Insurance [place] [address] Care Teams Pre Fabricator Relationship Specialty Start Date End Date Josefina Nguyen MD [address] [place] [phone] PCP - General INTERNAL MEDICINE 07/27/20
[2024-09-03 09:13] VITALS: BMI 24.2
[2024-09-03] MEDS: ZOLEDRONIC ACID 5 MG/100 ML 100 ML 400 MG IVPB (09:18)
[2024-09-03 09:23] VITALS: BP 130/70; PULSE 64; RESP 14; TEMP 36.6; O2SAT 96
[2024-09-03 09:43] VITALS: BP 129/70; PULSE 64; RESP 14
--- NOTE | 2024-09-03 09:44 | PC.NURSE ---
Tolerated yearly Reclast infusion well. SEE MAR/patient care notes.
== END 2024-09-03 08:56 | disposition home or self-care (01) ==
PROVIDERS: PCP Internal Medicine; Visit Provider Internal Medicine
DX: M81.0 Age-related osteoporosis without current pathological fracture (principal)
CPT/HCPCS: 96374; J3489

== ENCOUNTER 2024-09-16 07:32 | Outpatient (CLI) | payer MEDICARE, SELFPAY ==
--- OUTSIDE RECORDS SUMMARY | 2024-09-16 07:40 | XMS_ITS | Data Portability ---
Author Organization [facility], [address] [facility] ([place]) Address [address] [place] [address] Care Team Providers Care Brush Loader And Handle Attacher Name Role Phone NICKOLAS PORTER Primary Care [...] to five months for a recheck. annel [email or web address] Not available 01/02/2024 12:02:42 06/03/2024 06/03/2024 IMPRESSION: [...] 024 [email or web address] [facility], [address] [place] [address], [id number], 05/07/2024 10:20:13 CMP, serum or plasma 2023 024 [email or web address] [facility], [address] [place] [address], [id number], 04/20/2024 11:01:07 ESR (erythroc yte sedimenta tion rate), blood 2023 024 [email or web address] [facility], [address] [place] [address], [id number], 04/20/2024 11:01:07 C-reactiv e protein, quantitat montse, serum or plasma 2023 024 [email or web address] [facility], [address] [place] [address], [id number], 04/20/2024 11:01:07 CBC 2023 024 [email or web address] [facility], [address] [place] [address], [id number], 04/20/2024 11:01:07 CMP, serum or plasma 2023 024 [email or web address] [facility], [address] [place] [address], [id number], 05/06/2024 09:03:48 ESR (erythroc yte sedimenta tion rate), blood 2023 024 [email or web address] [facility], [address] [place] [address], [id number], 05/06/2024 09:02:23 C-reactiv e protein, quantitat montse, serum or plasma 2023 024 [email or web address] [facility], [address] [place] [address], [id number], 05/06/2024 09:03:30 CBC 2023 024 [email or web address] [facility], [address] [place] [address], [id number], 10/03/2023 15:30:56 CMP, serum or plasma 2023 024 CASE [facility], [address] [place] [address], [id number], 10/13/2023 11:26:43 ESR (erythroc yte sedimenta tion rate), blood 2023 024 [email or web address] [facility], [address] [place] [address], [id number], 10/03/2023 15:30:56 unlisted lab - CRP ([facility] only) 2023 024 [email or web address] [facility], [address] [place] [address], [id number], 10/03/2023 15:30:56 CK (creatine kinase), total, serum 2023 024 [email or web address] [facility], [address] [place] [address], [id number], 10/03/2023 15:30:56 HBsAg (hepatiti s B surface Ag), serum 2023 024 [email or web address] [facility], [address] [place] [address], [id number], 10/06/2023 14:46:25 hepatitis B core Ab, total, serum 2023 024 [email or web address] [facility], [address] [place] [address], [id number], 10/06/2023 14:46:17 hepatitis C Ab, serum 2023 024 [email or web address] [facility], [address] [place] [address], [id number], 10/06/2023 14:46:08 tb (M tuberculo sis), ifn-gamma connor, blood 2023 024 [email or web address] [facility], [address] [place] [address], [id number], 10/06/2023 14:45:58 vitamin D, 25-hydrox y, total, serum 2023 024 CASE [facility], [address] [place] [address], [id number], 10/13/2023 11:26:43 Referral None recorded. Procedures None recorded. Surgeries None recorded. Imaging None recorded. Medication Orders Depo-Medr ol 80 mg/mL suspensio n for injection 2024 025 [facility] #[id number], [address] [place], [address], 07/29/2024 22:57:12 Depo-Medr ol 80 mg/mL suspensio n for injection 2023 024 [facility] #[id number], [address] [place], [address], 01/02/2024 09:04:06 leucovori n calcium 5 mg tablet 2023 024 [id number], [address] [place], [address], 10/03/2023 15:30:56 Depo-Medr ol 80 mg/mL suspensio n for injection 2023 024 [facility] #[id number], [address] [place], [address], 10/03/2023 15:30:56 Patient TargetsNo targets recorded. Patient [...] and Address Organization Details Recorded Time Fibromyalgia 453884770 Active 2023 Homer Jefferson MD [address] [place], [address], [facility] 15:53:58 Seropositive rheumatoid arthritis 856790436 [facility] 14:47:32 Osteoarthritis 802644715 [facility] 2023 [facility] 14:47:38 Vitamin D deficiency 96927931 Active 2023 [facility] 15:15:38 Problem Notes None recorded. [...] Time Prescript ion - New 06/03 completed Showroom Manager: DEBI (CASE ZAHIRAI ONED), HOMER (Rheumat ology) [...] saturation in Arterial blood by Pulse oximetry Systolic blood pressure Diastolic blood pressure Provider Name and Address Organization Details Last Updated DateTime 5 162.56 cm 26.6 kg/m2 05032.1 8 g 77 /min 97 % 97 % 116 mm[Hg] 60 mm[Hg] Crista Gisselodell [facility] 5 12:10:57 Date Recorded Body height Body mass index (BMI) Body weight Heart rate Oxygen saturation Oxygen saturation in Arterial blood by Pulse oximetry Systolic blood pressure Diastolic blood pressure Provider Name and Address Organization Details Last Updated DateTime 4 162.56 cm 26.4 kg/m2 30525.2 2 g 77 /min 97 % 97 % 126 mm[Hg] 74 mm[Hg] Sharyn Link [facility] 4 14:42:43 Date Recorded Body height Body mass index (BMI) Body weight Heart rate Oxygen saturation Oxygen saturation in Arterial blood by Pulse oximetry Systolic blood pressure Diastolic blood pressure Provider Name and Address Organization Details Last Updated DateTime 4 162.56 cm 26.8 kg/m2 56310.1 3 g 66 /min 95 % 95 % 126 mm[Hg] 82 mm[Hg] Crista odell [facility] 4 15:05:58 Social History Question Answer Notes LastModified by Organizat ion Details LastModified Time Tobacco Smoking Status [facility] 01/01/2024 15:06:38 Do You Have An [...] Do You Have A Medical Power Of Group Teacher? Yes [email or web address] Information not available 09/30/2023 What Was The Date Of Your Most Recent Tobacco Screening? 10/02/2023 [email or web address] Information not available 09/30/2023 What Is Your Relationship Status? Single [email or web address] Information not available 09/30/2023 Sex: Unknown Functional Status Question Answer Note LastModified by Organizat ion Details LastModified Time Do you use any illicit or recreational drugs? No [email or web address] Information not available 09/30/2023 What is your level of alcohol consumption? None [email or web address] Information not available 09/30/2023 Are you currently employed? No [facility]-[email or web address] Information not available 09/30/2023 What is your occupation? Retired [email or web address] Information not available 09/30/2023 What is your exercise level? None [email or web address] Information not available 09/30/2023 Mental Status None recorded. Family History Relationship Description Onset Age of this Age Resolved Age Notes LastModified by Organization Details LastModified Time Father Arthritis [email or web address] Not available 09/30/2023 14:45:09 Medical History Condition [...] SNOMED-CT Code Diagnosis ICD10 Code Diagnosis Note [id number] Homer Jefferson MD [facility] ([place]) [address] [place] [address] 10/02/2023 14:27:34 10/06/2023 23:54:32 Seropositive rheumatoid arthritis 985536230 M05.9 Vitamin D deficiency 347 24915 E55.9 Seropositi ve rheumatoid arthritis of multiple joints 2571835509 7325444 M05.89 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 user [id number] 00 Z79.631 Long-term current use of immunosuppressive drug 026481794 Z79.825 [id number] Homer Jefferson MD [facility] ([place]) [address] [place] [address] 01/01/2024 14:55:17 01/05/2024 10:39:11 Seropositive rheumatoid arthritis 162829450 M05.9 Osteoarthritis 504247015 M19.90 Fibromyalgia 104060210 M 79.7 Vitamin D deficiency 347 39492 E55.9 Rheumatoid arthritis of multiple joints 150452325 M05.89 Additional diagnosis detail: Other rheumatoid arthritis with rheumatoid factor of multiple sites 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 user [id number] 00 Z79.631 Drug therapy finding 309 287789 Z79.620 Additional diagnosis detail: On etanercept therapy [id number] Homer Jefferson MD [facility] ([place]) [address] [place] [address] 06/03/2024 11:52:47 06/07/2024 04:29:17 Seropositive rheumatoid arthritis 885037356 M05.9 Osteoarthritis 222013627 M19.90 Fibromyalgia 809734565 M 79.7 Vitamin D deficiency 347 35819 E55.9 [id number] Homer Jefferson MD [facility] [place]) [address] [place] [address] 07/29/2024 12:09:44 08/03/2024 12:08:13 Seropositive rheumatoid arthritis 729897548 M05.9 Health Concerns Section Related Observation LastModified by Organization Detai ls LastModified Time None Recorded Concern Status LastModified by Organization Details LastModified Time None Recorded Advance Directives Directive N: Payers Insurance Date Sequence Insurance Name Policy Number Policy Perez Covered Member ID Perez Member ID Guarantor Name 08/03/2024 1 [facility] (MEDICARE REPLACEMENT/A DVANTAGE - HMO) [id number] Hailey Nicole [id number] Hailey Nicole 10/02/2023 1 [facility] (O) [id number] Anthony Nicole [id number] Hailey Nicole Notes Date Note Type Note [...] turn and toss back and forth.nv Haileydionne Wuparth a 62 year oldfemalepresenting for care. Homer Jefferson MD [address] [place] [address], [phone], [facility] 10/07/2023 23:12:01 4 text/html Hailey Sifuentes a [...] She has not had shingles.annel Jefferson MD [facility] [place] [address], [phone], [facility] 01/05/2024 09:08:45 5 text/html The patient is [...] vaping. Lately she has been using a [employer] rounding mat. She purchased this off of [employer] and apparently is plugs into the grounding [...] for care. Homer Jefferson MD [address] [facility], [place], [address], [facility] 06/08/2024 13:47:55 OBGyn Episode No OBEpisode recorded.
[2024-09-16 07:58] LABS: Hematocrit 38.4 % (35.0-49.0); Hemoglobin 12.4 g/dL (12.0-15.0); Mean Corpuscular HGB Conc 32.3 g/dL (32-36); Mean Corpuscular Hemoglobin 34.2 pg (27.0-31.0); Mean Corpuscular Volume 105.8 fL (78.0-102.0); Mean Platelet Volume 10.2 fl (9.2-11.8); Platelet Count Result 238 K/mm3 (150-420); Red Blood Count 3.63 M/mm3 (4.20-5.40); Red Cell Distribution Width 14.2 % (11.6-14.4); White Blood Count 5.4 K/mm3 (4.8-10.8)
[2024-09-16 08:30] LABS: Alanine Aminotransferase 27 U/L (6-35); Alkaline Phosphatase 117 U/L (38-126); Anion Gap 1 mmol/L (4-12); Aspartate Amino Transferase 34 U/L (14-36); Bilirubin,Total 0.5 mg/dL (0.2-1.3); Blood Urea Nitrogen 10 mg/dL (7-17); CRP < 0.5 mg/dL (<1.0); Calcium 8.3 mg/dL (8.4-10.2); Carbon Dioxide 29 mmol/L (22-30); Chloride 110 mmol/L (98-107); Estimated Glomerular Filt Rate > 60; Glucose 96 mg/dL (65-110); Osmolality Calculated 289 mOsm/kg (285-295); Potassium 4.1 mmol/L (3.4-5.0); Sodium 140 mmol/L (137-145); Total Protein 7.1 g/dL (6.3-8.2)
[2024-09-16 09:13] LABS: Erythrocyte Sedimentation Rate 34 mm/hr (0-20)
== END 2024-09-16 07:33 | disposition home or self-care (01) ==
LOC: CHSLAB 07:37
PROVIDERS: PCP Internal Medicine; Visit Provider Internal Medicine Rheumatology
DX: M05.9 Rheumatoid arthritis with rheumatoid factor, unspecified (principal)
CPT/HCPCS: 36415; 80053; 85027; 85652; 86140

== ENCOUNTER 2025-02-01 07:46 | Outpatient (CLI) | payer MEDICARE, SELFPAY ==
[2025-02-01 08:16] LABS: Hematocrit 39.0 % (35.0-49.0); Hemoglobin 12.8 g/dL (12.0-15.0); Mean Corpuscular HGB Conc 32.8 g/dL (32-36); Mean Corpuscular Hemoglobin 35.2 pg (27.0-31.0); Mean Corpuscular Volume 107.1 fL (78.0-102.0); Platelet Count Result 184 K/mm3 (150-420); Red Blood Count 3.64 M/mm3 (4.20-5.40); White Blood Count 4.0 K/mm3 (4.8-10.8)
[2025-02-01 09:22] LABS: Alanine Aminotransferase 27 U/L (6-35); Albumin Level 4.4 g/dL (3.5-5.1); Alkaline Phosphatase 61 U/L (38-126); Anion Gap 8 mmol/L (4-12); Aspartate Amino Transferase 33 U/L (14-36); Bilirubin,Total 0.6 mg/dL (0.2-1.3); Blood Urea Nitrogen 10 mg/dL (7-17); CRP < 0.5 mg/dL (<1.0); Calcium 9.0 mg/dL (8.4-10.2); Carbon Dioxide 28 mmol/L (22-30); Chloride 107 mmol/L (98-107); Cholesterol 173 mg/dL (0-200); Creatine Kinase 106 U/L (30-135); Estimated Glomerular Filt Rate > 60; Glucose 96 mg/dL (65-110); HDL Direct 51 mg/dL; Iron 143 ug/dL (37-170); Osmolality Calculated 295 mOsm/kg (285-295); Potassium 4.0 mmol/L (3.4-5.0); Sodium 143 mmol/L (137-145); Total Protein 8.0 g/dL (6.3-8.2); Triglycerides 148 mg/dL (<150)
[2025-02-01 09:36] LABS: Free T4 Free Thyroxine 0.81 ng/dL (0.78-2.19)
[2025-02-01 09:49] LABS: Thyroid Stimulating Hormone 1.790 uIU/mL (0.465-4.680)
[2025-02-01 09:53] LABS: Ferritin 56.60 ng/mL (11.1-264)
[2025-02-01 09:57] LABS: Hemoglobin A1C 5.5 % (<5.7)
[2025-02-01 10:09] LABS: Vitamin B12 623.0 pg/mL (239-931)
[2025-02-01 11:13] LABS: Add Urine Microscopic? YES; Appearance Urine Clear (Clear); Glucose Urine UA Negative (Negative); Leukocyte Esterase Ur 1+ (Negative); Nitrate Urine Negative (Negative); Specific Grav Ur 1.015 (1.010-1.020)
[2025-02-01 11:28] LABS: MALB Creatinine Ratio 5.1 mg/g (0-30)
== END 2025-02-01 07:47 | disposition home or self-care (01) ==
LOC: CHSLAB 07:48
PROVIDERS: PCP Internal Medicine; Visit Provider Internal Medicine Rheumatology
DX: I10 Essential (primary) hypertension (principal); J44.9 Chronic obstructive pulmonary disease, unspecified; E78.2 Mixed hyperlipidemia; M81.0 Age-related osteoporosis without current pathological fracture; R73.01 Impaired fasting glucose; M05.9 Rheumatoid arthritis with rheumatoid factor, unspecified; E53.8 Deficiency of other specified B group vitamins; M35.3 Polymyalgia rheumatica; D64.9 Anemia, unspecified
CPT/HCPCS: 36415; 80053; 80061; 81001; 82043; 82306; 82550; 82607; 82728; 83036; 83540; 84439; 84443; 85027; 85652; 86140

== ENCOUNTER 2025-02-07 11:59 | Outpatient (CLI) | payer MEDICARE, SELFPAY ==
--- NOTE | ~2025-02-07 | MM_ITS ---
EXAMINATION: MM screening caleb BI w raúl HISTORY: Screening TECHNIQUE: Craniocaudal and mediolateral oblique 3-D tomosynthesis images were obtained and synthetic 2-D images were generated. CAD analysis was submitted and interpreted. COMPARISON: Comparison to multiple prior studies sequentially, with oldest reviewed study dated , 01/26/2021 BREAST PARENCHYMAL COMPOSITION: There are scattered areas of fibroglandular density. FINDINGS: There is no evidence of suspicious mass, calcification, or architectural distortion to suggest malignancy in either breast. IMPRESSION: 1. No mammographic evidence of malignancy. 2. Recommend routine screening mammography in one year. BI-RADS Category 1: Negative Reviewed, dictated and finalized at location B.
== END 2025-02-07 12:00 | disposition home or self-care (01) ==
LOC: CHSIMG 12:00
PROVIDERS: PCP Internal Medicine; Visit Provider Internal Medicine
DX: Z12.31 Encounter for screening mammogram for malignant neoplasm of breast (principal)
CPT/HCPCS: 77063; 77067

== ENCOUNTER 2025-02-11 14:22 | Outpatient (CLI) | payer MEDICARE, SELFPAY ==
--- NOTE | ~2025-02-11 | XR_ITS ---
XR cervical spine 4-5V Indication: chronic cervical pain, NKI Comparison: None Findings: Grade 1 anterolisthesis C3 on C4 and C4 on C5, no fracture. No subluxation flexion and extension Severe loss of disc at C5-6, C6-7 and C7-T1. Soft tissues unremarkable Impression: No acute abnormality. Reviewed, dictated and finalized at location P. Impression: No acute abnormality.
--- OUTSIDE RECORDS SUMMARY | 2025-02-11 14:26 | XMS_ITS | Clinical Summary ---
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 Gender Identity Not on file Sexual Orientation [...] 1:31 PM CDT Height 167.6 cm (5' 6) 08/21/2020 1:31 PM CDT Body Mass Index 23.89 08/21/2020 1:31 PM CDT Plan of Treatment Health Maintenance Due Date Last Done Comments Colorectal Cancer Screening Colonoscopy (10 Years) 1961 Annual Physical 1964 DTaP, Tdap and Td Vaccines ( 1 - Tdap) 1980 Mammogram Screening 2001 Zoster Vaccines (1 of 2) 11/22/2011 Pneumococcal Vaccine: 50+ Years (2 of 2 - PCV20 or PCV21) 08/21/2019 08/20/2018 COVID-19 Vaccine (3 - 2024-2 6 season) 2024 07/28/2020, 06/28/2020 Influenza Adult (#1) 2025 RSV Immunization or 60+ Years (1 - 1-dose 75+ series) 2036 Hepatitis C Completed 10/02/2023 Hepatitis A Vaccines Aged Out No long er eligible based on patient's age to complete this topic Meningococcal B Vaccine Aged Out No l [...] VE NON-REACT MONTSE 10/03/2023 8:[address] [facility] Comment: ANTIBODIES TO HCV NOT DETECTED. DOES NOT EXCLUDE THE POSSIBILITY OF EXPOSURE TO HCV. 10/02/2023 3:01 PM CDT us Homer Jefferson MD LABORATORY Final Resul t [facility] [address] [place] [address], [id number] from Last 3 Months or Most Recently Relevant to Health Maintenance Insurance [id number] MEDICARE Care Teams Lead Nitrate Processor Relationship Specialty Start Date End Date Josefina Nguyen MD [address] [place] [address] PCP - General INTERNAL MEDICINE 07/27/20
== END 2025-02-11 14:23 | disposition home or self-care (01) ==
LOC: CHSIMG 14:24
PROVIDERS: PCP Internal Medicine Rheumatology; Visit Provider Internal Medicine Rheumatology
DX: M54.2 Cervicalgia (principal)
CPT/HCPCS: 72050

== ENCOUNTER 2025-02-22 14:25 | Emergency (ER) | payer MEDICARE, SELFPAY ==
--- NOTE | ~2025-02-22 | XR_ITS ---
EXAMINATION: XR hand LT min 3V DATE: 02/22/2025 15:02 INDICATION: Trauma to left fourth digit after cutting it TECHNIQUE: 3 images of the left hand were obtained. COMPARISON: None. FINDINGS: [ No significant degenerative change.] Soft tissue swelling about the fourth digit. [ No radiographic evidence for an acute fracture or dislocation.] [ No radiopaque foreign body.] [ No sclerotic or destructive bone lesions.] IMPRESSION: 1. No fracture identified. Soft tissue swelling about the fourth digit. If symptoms persist or worsen consider a short-term follow-up study or additional imaging for further assessment. Reviewed, dictated and finalized at location Q. CTOR OF ACQUISITION MARKETING IMPRESSION: 1. No fracture identified. Soft tissue swelling about the fourth digit. If symptoms persist or worsen consider a short-term follow-up study or addition al imaging for further assessment.
--- NOTE | 2025-02-22 14:36 | ED.WOUNDLAC ---
HPI - Wound/Laceration General Chief Complaint: Wound/Laceration Stated Complaint: hand laceration Time Seen by Provider: 02/22/25 14:35 Source: patient and family Mode of arrival: ambulatory Limitations: no limitations History of Present Illness HPI narrative: Patient is a 64-year-old female with a left ring finger distal tip flap laceration after getting it cut on a hedger. The machine was on and she got her finger caught and pulled back quickly. Bleeding is slight at this time. Onset (ago): hour(s) (One) Extremity Location: Left: hand (Ring finger distal tip) Place: home Patient tetanus UTD: Yes Context: accidental Associated symptoms: pain Treatments prior to arrival: bandage Related Data Home Medications ?Medication ?Instructions ?Recorded ?Confirmed ?Last Taken ?Type escitalopram oxalate 10 mg tablet 10 mg PO DAILY 03/21/23 09/03/24 Unknown History leflunomide 20 mg tablet 20 mg PO DAILY 03/21/23 09/03/24 Unknown History lovastatin 20 mg tablet 20 mg PO QPM 03/21/23 09/03/24 Unknown History meloxicam 15 mg tablet 15 mg PO DAILY 03/21/23 09/03/24 Unknown History bupropion HCl 150 mg tablet,12 hr mg PO 02/22/25 Unknown History sustained-release buspirone 15 mg tablet mg 02/22/25 Unknown History famotidine 40 mg tablet mg 02/22/25 Unknown History leucovorin calcium 5 mg tablet mg 02/22/25 Unknown History 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 sodium 2.5 mg tablet mg 02/22/25 Unknown History tocilizumab-aazg 162 mg/0.9 mL mg subcut 02/22/25 Unknown History subcutaneous pen injector (Tyenne Autoinjector) valacyclovir 500 mg tablet mg 02/22/25 Unknown History Allergies Allergy/AdvReac Type Severity Reaction Status Date / Time Penicillins Allergy Unknown Rash Verified 02/22/25 14:37 Review of Systems Review of Systems: All systems reviewed & are unremarkable except as noted in HPI and below Constitutional: Constitutional: Reports no additional constitutional complaints Eyes: Eyes: Reports no additional eye complaints ENT: Reports system reviewed and no additional complaints, except as documented Cardiovascular: Cardiovascular: Reports no additional cardiovascular complaints Respiratory: Respiratory: Reports no additional respiratory complaints Gastrointestinal: Gastrointestinal: Reports no additional gastrointestinal complaints Genitourinary: Genitourinary: Reports no additional female genitourinary complaints Musculoskeletal: Musculoskeletal: Reports no additional musculoskeletal complaints Integumentary/Breasts: Skin/Breast: Reports system reviewed and no additional complaints, except as docu Neurologic: Reports system reviewed and no additional complaints, except as documented Psychiatric: Psychiatric: Reports no additional psychiatric complaints Endocrine: Endocrine: Reports no additional endocrine complaints Hematologic/Lymphatic: Hematologic/Lymphatic: Reports no additional hematologic/lymphatic complaints Allergic/Immunologic: Allergic/Immunologic: Reports no additional allergic/immunologic complaints Exam Const: General: healthy appearing Nutritional Appearance: well nourished Orientation/consciousness: patient oriented x3 HENMT: Head: normal to inspection Ears: external ears normal Face/Nose/Sinus: Normal external nose present Eyes: Conjunctivae: conjunctivae normal Pupils: Equal, round and reactive pupils present EOM: EOMs intact bilaterally Neck: Neck: normal visual inspection Chest: Chest palpation & inspection: normal inspection of the chest Resp: Effort & Inspection: normal respiratory effort and not labored Auscultation: clear to auscultation bilaterally and no crackles Cardio: Rate: regular rate Rhythm: regular rhythm Heart sounds: no murmurs GI: Inspection: non-distended GI Palp: Yes Soft to palpation and No Tenderness to palpation present (GI) Auscultation: normal bowel sounds Back/Spine/Pelvis: Back: no CVA tenderness Skin: General skin exam: normal color Rashes: no rashes Wounds: wound noted Other: Left hand ring finger distal tip has a flap 2 cm with soft tissue seen but not any deeper than fat layer Neuro: General: patient oriented x3, moves all extremities and no meningeal signs Extrem: General: normal to inspection, no clubbing, cyanosis or edema and no pedal edema Psych: Mental Status: mental status grossly normal Affect: normal affect Attitude: cooperative Course Vital Signs Vital signs: Vital Signs Temperature 36.6 C 02/22/25 14:39 Pulse Rate 83 02/22/25 14:39 Respiratory Rate 16 02/22/25 14:39 Blood Pressure 119/84 02/22/25 14:39 Pulse Oximetry 97 02/22/25 14:39 Oxygen Delivery Room Air 02/22/25 14:39 Temperature 36.6 C 02/22/25 14:39 Pulse Rate 83 02/22/25 14:39 Respiratory Rate 16 02/22/25 14:39 Blood Pressure 119/84 02/22/25 14:39 Pulse Oximetry 97 02/22/25 14:39 Oxygen Delivery Room Air 02/22/25 14:39 MDM - Wound/Laceration MDM Narrative Medical decision making narrative: Patient is a 64-year-old female with a sharp object hedger injury prior to arrival to the left hand ring finger distal tip. X-ray. Adhesive glue. Tetanus up-to-date. Antibiotics. Imaging Data Attestation: I personally reviewed and interpreted this imaging study as follows: Radiologist's impression: X-ray left hand is negative for acute process Discharge Plan Discharge Clinical Impression: Finger laceration Qualifiers: Encounter type: initial encounter Finger: ring finger Damage to nail status: without damage Foreign body presence: without foreign body Laterality: left Qualified Code(s): S61.215A - Laceration without foreign body of left ring finger without damage to nail, initial encounter Patient Disposition: Home Condition: Stable Instructions: Antibiotic Form, Laceration (ED), Skin Adhesive Care (ED) Patient Language: Chilean Prescriptions: New sulfamethoxazole-trimethoprim [Bactrim DS] 800-160 mg tablet 1 tablet PO BID 7 Days Qty: 14 0RF No Action meloxicam 15 mg Tablet 15 mg PO DAILY leflunomide 20 mg Tablet 20 mg PO DAILY lovastatin 20 mg Tablet 20 mg PO QPM escitalopram oxalate 10 mg Tablet 10 mg PO DAILY bupropion HCl 150 mg tablet sustained-release 12 hr PO famotidine 40 mg tablet valacyclovir 500 mg tablet 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 sodium 2.5 mg tablet leucovorin calcium 5 mg tablet buspirone 15 mg tablet Tyenne Autoinjector 162 mg/0.9 mL pen injector SUBCUT Follow-up/Referrals: Josefina Nguyen MD [Primary Care Provider, Internal Medicine] Time of Disposition: 16:40
[2025-02-22 14:39] VITALS: BP 119/84; PULSE 83; RESP 16; TEMP 36.6; O2SAT 97
--- OUTSIDE RECORDS SUMMARY | 2025-02-22 16:04 | XMS_ITS | Clinical Summary ---
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 DOES NOT EXCLUDE THE POSSIBILITY OF EXPOSURE TO HCV. 10/02/2023 3:01 PM CDT us Homer Jefferson MD LABORATORY Final Resul t [facility] [address] [place] [address], [id number] from Last 3 Months or Most Recently Relevant to Health Maintenance Insurance [id number] MEDICARE Care Teams Station Captain Relationship Specialty Start Date End Date Josefina Nguyen MD [address] [place] [address] PCP - General INTERNAL MEDICINE 07/27/20
--- OUTSIDE RECORDS SUMMARY | 2025-02-22 16:27 | XMS_ITS | Clinical Summary ---
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 Comment: ANTIBODIES TO HCV NOT DETECTED. DOES NOT EXCLUDE THE POSSIBILITY OF EXPOSURE TO HCV. 10/02/2023 3:01 PM CDT us Homer Jefferson MD LABORATORY Final Resul t [facility] [address] [place] [address], [id number] from Last 3 Months or Most Recently Relevant to Health Maintenance Insurance [id number] MEDICARE Care Teams Elevator Mechanic Apprentice Relationship Specialty Start Date End Date Josefina Nguyen MD [address] [place] [address] PCP - General INTERNAL MEDICINE 07/27/20
[2025-02-22 16:50] VITALS: BP 121/84; PULSE 69; RESP 16; O2SAT 98
== END 2025-02-22 16:52 | disposition home or self-care (01) ==
PROVIDERS: Emergency Provider Emergency Medicine; PCP Internal Medicine
DX: S61.215A Laceration without foreign body of left ring finger without damage to nail, initial encounter (principal); Z79.899 Other long term (current) drug therapy; W27.8XXA Contact with other nonpowered hand tool, initial encounter
CPT/HCPCS: 12001; 73130; 99283

== ENCOUNTER 2025-03-02 14:10 | Outpatient (CLI) | payer MEDICARE, SELFPAY ==
[2025-03-02 14:26] LABS: Hematocrit 40.0 % (35.0-49.0); Hemoglobin 13.2 g/dL (12.0-15.0); Immature Granulocyte Percent A 0.1 % (0.0-0.0); Lymphocytes Absolute Auto 2.40 K/mm3 (1.10-4.50); Mean Corpuscular HGB Conc 33.0 g/dL (32-36); Mean Corpuscular Hemoglobin 35.8 pg (27.0-31.0); Mean Corpuscular Volume 108.4 fL (78.0-102.0); Nucleated Red Blood Cells Absolute Auto 0.00 K/mm3 (0.00-0.00); Nucleated Red Blood Cells Perc 0.0 % (0-0.0); Platelet Count Result 201 K/mm3 (150-420); Red Blood Count 3.69 M/mm3 (4.20-5.40); White Blood Count 7.0 K/mm3 (4.8-10.8)
--- OUTSIDE RECORDS SUMMARY | 2025-03-02 15:09 | XMS_ITS | Clinical Summary ---
Author Organization 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 DOES NOT EXCLUDE THE POSSIBILITY OF EXPOSURE TO HCV. 10/02/2023 3:01 PM CDT us Homer Jefferson MD LABORATORY Final Resul t [facility] [address] [place] [address], [id number] from Last 3 Months or Most Recently Relevant to Health Maintenance Insurance [id number] MEDICARE Care Teams Cloth Sander Relationship Specialty Start Date End Date Josefina Nguyen MD [address] [place] [address] PCP - General INTERNAL MEDICINE 07/27/20
== END 2025-03-02 14:11 | disposition home or self-care (01) ==
LOC: CHSLAB 14:11
PROVIDERS: PCP Internal Medicine; Visit Provider Internal Medicine Rheumatology
DX: M35.3 Polymyalgia rheumatica (principal)
CPT/HCPCS: 36415; 85025